=== PATIENT | male | born 1945 | race Caucasian/White ===

== ENCOUNTER 2021-04-06 11:54 | Inpatient (IN) ==
--- NOTE | 2021-04-06 12:12 | Emergency Department Note ---
HPI General Chief complaint: Weakness Stated complaint: weakness, edema, Time Seen by Provider: 04/06/21 11:57 Source: EMS Mode of arrival: wheelchair Limitations: altered mental status History of Present Illness HPI Narrative: Narrative: Patient presents emergency department via EMS. EMS report that the patient's been in [facility] has been there for 2 days. He has a history of Parkinson's. He fell 2 days ago. The care facility sent the patient to the emergency department due to concern for possible infection. EMS reported that the patient had no complaints on their evaluation. Patient does complain of some left lower leg pain to me after the fall. No fever. No other complaints. Related Data Home Medications Medication Instructions Recorded Confirmed aspirin 81 mg tablet,delayed 81 mg PO QDAY 04/19/15 04/06/21 release B12 vitamin 1,000 mcg PO QDAY 01/14/17 02/27/21 ferrous sulfate 325 mg (65 mg 325 mg PO QDAY tab 01/14/17 04/06/21 iron) tablet carbidopa 25 mg-levodopa 100 mg 2 tab PO TID tab 09/01/19 02/27/21 tablet escitalopram oxalate 10 mg tablet 20 mg PO QHS tab 11/01/20 04/06/21 ampicillin 500 mg PO BID 04/06/21 04/06/21 atorvastatin [Lipitor] 20 mg PO HS 04/06/21 calcium carbonate 200 mg PO QID PRN 04/06/21 04/06/21 docusate sodium 100 mg PO QDAY PRN 04/06/21 04/06/21 ibuprofen 200 mg PO Q6H PRN 04/06/21 04/06/21 loperamide 2 mg PO QID PRN 04/06/21 04/06/21 magnesium hydroxide [Milk of 30 ml PO QDAY 04/06/21 04/06/21 Magnesia] Previous Rx's Medication Instructions Recorded potassium chloride 20 mEq 20 meq PO .QOD #45 tab 11/09/18 tablet,extended release(part/cryst) omeprazole 20 mg capsule,delayed See Rx Instructions .ROUTE 08/15/20 release .COMPLEX #90 cap diltiazem HCl 240 mg See Rx Instructions .ROUTE 11/01/20 capsule,extended release 24 hr .COMPLEX #90 cap rivaroxaban 20 mg tablet 20 mg PO QDAY #90 tab 11/01/20 bisacodyl 10 mg VT QDAY PRN #12 ea 12/21/20 quetiapine 100 mg tablet 100 mg PO QHS #30 tab 01/17/21 Allergies Allergy/AdvReac Type Severity Reaction Status Date / Time Doxepin Allergy Intermediate Intolerance Verified 02/27/21 09:34 venlafaxine [From Effexor] Allergy Intermediate Intolerance Verified 02/27/21 09:34 Review of Systems ROS ROS Narrative: Narrative: As above, all other systems reviewed and negative. PFSH Narrative Patient History Narrative: Narrative: Reviewed Medical/Surgical/Family History All Active Problems (Updated 04/06/21 @ 18:47 by Thom Bhatti MD) Fall (Acute) Head injury (Acute) Contusion of hip, left (Acute) Contusion of left shoulder (Acute) Acute GI bleeding (Acute) Anemia (Acute) Generalized weakness (Acute) Balance disorder (Acute) Acute hip pain, bilateral (Acute) Parkinson's disease (Acute) Recurrent falls (Acute) Constipation (Acute) Contusion (Acute) Head injury (Acute) Fall (Acute) Accidental overdose (Acute) Foot pain (Acute) Exposure to COVID-19 virus (Acute) Parkinsons disease (Acute) Right-sided chest wall pain (Acute) Benign gastric polyp (Chronic) GAVE (gastric antral vascular ectasia) (Chronic) Hx of esophagogastroduodenoscopy (Chronic) Gout (Chronic) Anemia (Chronic) Folliculitis (Chronic) Encounter for Health Maintenance Examination in Adult (Chronic) Hx of esophagogastroduodenoscopy (Chronic) Hx of colonoscopy (Chronic) History of cardioversion (Chronic) 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) History of tobacco use (Chronic) Thoracic or lumbosacral neuritis or radiculitis (Chronic) Paroxysmal atrial fibrillation (Chronic) Chronic airflow obstruction (Chronic) Mitral valve regurgitation (Chronic) Kidney stones (Chronic) Ischemic heart disease, chronic (Chronic) Insomnia (Chronic) Hypertension (Chronic) Hyperlipidemia (Chronic) Herpes zoster (Chronic) Erectile dysfunction (Chronic) Situational depression (Chronic) Degenerative arthritis (Chronic) Decreased libido (Chronic) Hx of colonic polyp (Chronic) Atrial fibrillation (Chronic) Asbestos exposure (Chronic) Acne rosacea (Chronic) Medical History Acne rosacea Asbestos exposure Chest x-ray stable in July 2011 and on every other year sequencing Atrial fibrillation Balance disorder Chronic airflow obstruction hx of positional airflow obstruction with ENT review in 2008, not a current active problem Decreased libido with normal testosterone level in July of 2011 Degenerative arthritis Encounter for Health Maintenance Examination in Adult Erectile dysfunction history of, and decreased libido with normal testosterone level in July 2011 Foot pain Herpes zoster History of tobacco use Ex smoker, discontinuing in 1990 with heavy asbestos exposure; chest x-ray in July 2011 stable and on every other year sequencing Hx of colonic polyp 11/05/1160-[facility]mus[facility]l-[id number], hyperplastic polyp. Iron deficiency anemia, now on five year sequencing with past hx of adenomatous polyp Hyperlipidemia Hypertension Insomnia Ischemic heart disease, chronic coronary bypass grafting; paroxysmal atrial fibrillation first noted in February of 2012-aspirin anticoagulation. stable office treadmill in June 2009; plan restratification at five year point Kidney stones history of, ct in 2005, updated CT to evaluate iron deficiency anemia in October 2011 Mitral valve regurgitation Echo showing 2+ mitral regurgitation, currently stable on Cardizem with CHADS score of 1.0 and aspirin coagulation Paroxysmal atrial fibrillation coronary bypass grafting, paroxysmal atrial fibrillation first noted in February 2012 with echo showing 2+ mitral regurgitation, currently stable on Cardizem with CHADS score of 1.0-aspirin anticoagulation Situational depression long standing Thoracic or lumbosacral neuritis or radiculitis 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 10/2016--tics,hem Hx of esophagogastroduodenoscopy 11/12/11-Normal' small bowel follow through and abdominal CT normal, corrected with iron replacement and remains stable Family History uncle Diabetes mellitus several older family members Heart problem grandmother , 65 Acute myocardial infarction sister Malignant neoplasm of ovary Social History Smoking Status: Former smoker Alcohol Intake Frequency: does not drink Substance Use: does not use Exam Narrative Narrative: Narrative: Blood pressure 123/74, pulse 91, respirations 16, temperature 97.3, O2 sat 100%. General Limitations: altered mental status Head Head: Present atraumatic and normocephalic Eye Eye: Present normal appearance, PERRL and EOMI ENT ENT: Present normal exam Neck Neck: Present normal inspection Respiratory Respiratory: Absent respiratory distress : Present other (Rectal exams performed with nurse in the room. Stool is brown, guaiac positive.) Extremities Extremities: Present other (Bilateral lower extremity pitting edema, abrasion to left knee, some erythema to the anterior left velasco, generalized tenderness palpation of the left lower extremity from the knee down to the foot, no localizing bony tenderness.) Neurological Neurological: Present alert and CN II-XII intact; Absent motor sensory deficit Psychiatric Psychiatric: Present normal affect and normal mood Skin Skin: Present warm (WNL) and dry Course Vital Signs Vital signs: Vital Signs Temperature 97.3 F 04/06/21 11:55 Pulse Rate 91 H 04/06/21 11:55 Respiratory Rate 16 04/06/21 11:55 Blood Pressure 123/74 04/06/21 11:55 Pulse Oximetry (%) 100 04/06/21 11:55 Temperature 97.3 F 04/06/21 11:55 Pulse Rate 88 04/06/21 18:16 Respiratory Rate 16 04/06/21 11:55 Blood Pressure 144/73 04/06/21 18:31 Pulse Oximetry (%) 99 04/06/21 18:31 [facility] MDM Narrative Medical decision making narrative: Narrative: Patient hydrated orally. He is on Xarelto. He had a significant decrease in his hemoglobin. Guaiac positive stool. We attempted to obtain orthostatics however could not get a standing blood pressure due to max assist of 2 nurses and patient significantly weak. Spoke with on-call hospitalist. Case reviewed in detail over the phone. Hospitalist agreed with admission. Lab Data Result diagrams: 04/06/21 12:09 Labs: Lab Results 04/06/21 04/06/21 04/06/21 Range/Units 12:09 12:09 16:43 WBC 6.8 (4.5-11.0) K/mcL RBC 2.72 L (4.63-6.08) M/mcL Hgb 9.1 L (13.7-17.5) g/dL Hct 27.2 L (40.1-51.0) % POC Hct 26 L (41-55) % MCV 100.0 (80.0-100.0) fL MCH 33.5 (26.0-34.0) pg MCHC 33.5 (31.0-36.0) g/dL RDW 12.5 (11.5-14.5) % Plt Count 299 (140-440) K/mcL MPV 10.0 (7.4-10.4) fL Neut % (Auto) 69.0 (38.0-78.0) % Lymph % (Auto) 12.7 L (15.5-49.0) % Caswell % (Auto) 16.3 H (1.0-12.0) % Eos % (Auto) 1.6 (0.0-7.0) % Baso % (Auto) 0.4 (0.0-2.0) % Lymph # (Auto) 0.87 L (1.50-4.80) K/mcL Caswell # (Auto) 1.11 H (0.10-0.90) K/mcL Eos # (Auto) 0.11 (0.00-0.70) K/mcL Baso # (Auto) 0.03 (0.00-0.30) K/mcL Absolute Neutrophils 4.71 (1.80-8.00) K/mcL POC Sodium 140 (133-145) mEq/L POC Potassium 3.6 (3.3-5.1) mEql/L POC Chloride 103 (96-108) mEq/L POC Total CO2 27 (22-30) mmol/L POC BUN 13 (6-20) mg/dL POC Creatinine 0.7 (0.6-1.2) mg/dL POC Glucose 91 (70-105) mg/dL POC WB Ioniz Calcium 1.18 (1.16-1.32) mmEq/L Urine Color Yellow Urine Appearance Hazy A (Clear) Urine pH 5.0 (5.0-9.0) Ur Specific Platter 1.024 (1.000-1.035) Urine Protein Negative (Negative) mg/dL Urine Glucose (UA) Negative (Negative) mg/dL Urine Ketones 5 A (Negative) mg/dL Urine Occult Blood >=1.0 A (Negative) mg/dL Urine Nitrate Negative (Negative) Urine Bilirubin Negative (Negative) mg/dL Urine Urobilinogen 2.0 A mg/dL Ur Leukocyte Esterase 250 A (Negative) /ug Urine RBC 144 H (0-3) /hpf Urine WBC 39 H (0-4) /hpf Ur Squamous Epith Cells 1 (0-4) /hpf Urine Bacteria None (0) /hpf Urine Mucus Many A (None) /hpf Ur Culture Indicated? yes ED POC Tests ED POC Tests: SRIRAM - SARS Antigen Negative Discharge Plan Patient/Caregiver Discharge Instructions Pt seen by QA TECH/PA only: No Clinical Impression: Acute GI bleeding, Anemia, Generalized weakness Patient Disposition: Xfer As Inpt ([facility]) Follow up with: Milind Malone MD, FAAFP [Primary Care Provider] - Prescriptions: No Action potassium chloride 20 mEq tablet,ER particles/crystals 20 meq PO .QOD Qty: 45 RF: 1 omeprazole 20 mg capsule,delayed release(DR/EC) See Rx Instructions .ROUTE .COMPLEX Qty: 90 RF: 3 aspirin 81 mg tablet,delayed release (DR/EC) 81 mg PO QDAY RF: 0 carbidopa-levodopa 25-100 mg tablet 2 tab PO TID RF: 0 escitalopram oxalate 10 mg tablet 20 mg PO QHS RF: 0 diltiazem HCl 240 mg capsule,extended release 24hr See Rx Instructions .ROUTE .COMPLEX Qty: 90 RF: 4 rivaroxaban 20 mg tablet 20 mg PO QDAY Qty: 90 RF: 5 quetiapine 100 mg tablet 100 mg PO QHS Qty: 30 RF: 10 B12 vitamin 1,000 mcg 1,000 mcg PO QDAY RF: 0 ferrous sulfate [iron] 325 mg (65 mg iron) tablet 325 mg PO QDAY RF: 0 bisacodyl 10 mg suppository 10 mg VT QDAY PRN (Reason: constipation) Qty: 12 RF: 0 ampicillin 500 mg Capsule 500 mg PO BID RF: 0 loperamide 2 mg Tablet 2 mg PO QID PRN (Reason: Diarrhea) RF: 0 magnesium hydroxide [Milk of Magnesia] 400 mg/5 mL Suspension 30 ml PO QDAY RF: 0 ibuprofen 100 mg Tablet 200 mg PO Q6H PRN (Reason: Pain) RF: 0 calcium carbonate 200 mg calcium (500 mg) Tablet,Chewable 200 mg PO QID PRN (Reason: gerd) RF: 0 docusate sodium 100 mg Tablet 100 mg PO QDAY PRN (Reason: Constipation) RF: 0 atorvastatin [Lipitor] 20 mg tablet 20 mg PO HS RF: 0
[2021-04-06 12:16] LABS: POC Blood Urea Nitrogen 13 mg/dL (6-20); POC CO2 27 mmol/L (22-30); POC Calcium, Ionized 1.18 mmEq/L (1.16-1.32); POC Chloride 103 mEq/L (96-108); POC Creatinine 0.7 mg/dL (0.6-1.2); POC Glucose, Random 91 mg/dL (70-105); POC Hematocrit 26 % (41-55); POC Potassium 3.6 mEql/L (3.3-5.1); POC Sodium 140 mEq/L (133-145)
--- NOTE | 2021-04-06 12:56 | XRay Report ---
HISTORY: Increased weakness and edema FINDINGS: Lungs are clear and normally expanded. The heart size is normal. There has been prior sternotomy. No congestive heart failure or pleural effusion are present. There has been little change from the prior exam done on 01/13/21. IMPRESSION: Normal exam, without congestive heart failure Interpreted and Authenticated by: Felix Leos 04/06/21
--- NOTE | 2021-04-06 12:58 | XRay Report ---
HISTORY: Fell with left leg pain and weakness FINDINGS: No acute fracture or dislocation are present. Inferior to the lateral malleolus there is a well-corticated 3 x 5 mm soft tissue calcification. This may be an old ununited fracture fragment. There is edema throughout the lower leg extending down to the ankle. The joint spaces are normal in width. Small calcaneal spurs are present. IMPRESSION: Nonspecific soft tissue swelling and no acute fracture Interpreted and Authenticated by: Felix Leos 04/06/21
--- NOTE | 2021-04-06 13:00 | XRay Report ---
HISTORY: Fell with left ankle injury FINDINGS: Inferior to the lateral malleolus there is a well-corticated calcification which is been old ununited chip fracture. No acute fracture or dislocation are present. The ankle joint space is normal in width. No joint effusion is detected. There are small spurs on the plantar surface and posterior border of the calcaneus. Edema surrounds the ankle. The greatest swelling is along the medial side. IMPRESSION: No acute fracture Interpreted and Authenticated by: Felix Leos 04/06/21
--- NOTE | 2021-04-06 13:01 | XRay Report ---
HISTORY: Fell with left knee injury FINDINGS: The knee is held in flexion. There is no evidence of fracture or dislocation. No joint effusion is detected. Joint spaces are normal in width. There is atherosclerotic plaque in the arteries above and below the knee. Several vascular clips are present along the medial side of the distal thigh. There is no significant arthritis. IMPRESSION: No fracture Interpreted and Authenticated by: Felix Leos 04/06/21
--- NOTE | 2021-04-06 13:02 | XRay Report ---
HISTORY: Fell with left foot injury FINDINGS: Patient has a very high arch in the foot. No fracture or dislocation are present. There is mild osteoarthritis involving the head of the first metatarsal. There is also small spur at the articulation of the medial cuneiform and first metatarsal. Small calcaneal spurs are noted. IMPRESSION: No fracture Interpreted and Authenticated by: Felix Leos 04/06/21
[2021-04-06 14:02] LABS: Basophils # (Auto) 0.03 K/mcL (0.00-0.30); Basophils % (Auto) 0.4 % (0.0-2.0); Eosinophils # (Auto) 0.11 K/mcL (0.00-0.70); Eosinophils % (Auto) 1.6 % (0.0-7.0); Hematocrit 27.2 % (40.1-51.0); Hemoglobin 9.1 g/dL (13.7-17.5); Lymphocytes # (Auto) 0.87 K/mcL (1.50-4.80); Lymphocytes % (Auto) 12.7 % (15.5-49.0); Mean Corpuscular HGB Conc 33.5 g/dL (31.0-36.0); Monocytes # (Auto) 1.11 K/mcL (0.10-0.90); Monocytes % (Auto) 16.3 % (1.0-12.0); Platelet Count 299 K/mcL (140-440); RBC 2.72 M/mcL (4.63-6.08); Red Cell Distribution Width 12.5 % (11.5-14.5); WBC 6.8 K/mcL (4.5-11.0)
[2021-04-06] MEDS ORDERED: 0.9 % SODIUM CHLORIDE 1,000 ML IV ONE (17:02)
[2021-04-06 17:48] LABS: Appearance,Urine HAZY (Clear); Bilirubin,Urine Negative (Negative); Color,Urine Yellow; Culture Indicated,Urine yes; Glucose,Urine (UA) Negative (Negative); Ketones,Urine 5 mg/dL (Negative); Leukocyte Esterase,Urine 250 /ug (Negative); Mucus,Urine MANY /hpf; Nitrate,Urine Negative (Negative); Protein,Urine Negative (Negative); Specific Gravity,Urine 1.024 (1.000-1.035); Urine Blood >=1.0 mg/dL (Negative); Urine RBC 144 /hpf (0-3); Urine Squamous Epithelial Cell 1 /hpf (0-4); Urine WBC 39 /hpf (0-4)
--- NOTE | 2021-04-06 17:51 | Internal Med History&Physical ---
HPI History of Present Illness Patient information: Note initiated : 04/06/21 at 5:37 pm Service Date, if different from initiated Date: [] Patient: Paul Turner a 76 y/o M admitted on for weakness, edema,. Chief Complaint: [] History of present illness: Mr. Turner is a 76 year old male with a history of Parkinson's disease complicated by dementia, coronary artery disease status post CABG, atrial fibrillation on Xarelto, frequent falls, currently living at a facility in [place], [place]. Per report, the patient was admitted to the facility a couple days ago and had a fall on that date. The patient was taken to the emergency department on 04/06/2021 for concern of possible infection. Patient was afebrile, no leukocytosis, no evidence of infection however he did have acute drop in hemoglobin from late December from 12.5 to 9.1. Stool Hemoccult in the ED was positive. Hospital medicine was consulted for concern of possible GI bleed. In the ED, the patient is unable to provide history due to severe dementia. The patient does have some bruising on his left lower extremity, right hip, upper extremities. He was hemodynamically stable, x-rays of the chest, left knee, left tibia fibula, left ankle, left foot did not show any acute findings. CBC and chemistry panel were fairly unremarkable except for the drop in hemoglobin. CODE STATUS was discussed with the patient's daughter, Kamla Kelly, who says the patient CODE STATUS is DNR. Review of systems: Unable to obtain due to dementia. Physical exam Head: Atraumatic, normal inspection. Eyes: normal appearance, no scleral icterus. Neck: full ROM Respiratory: no respiratory distress. Cardiovascular: normal rate and rhythm, holosystolic murmur present. GI/Abdominal: soft, nontender, no guarding. Extremities: left lower extremity edema, bruise on left posterior thigh, right hip Neurological: CN II-XII intact, intact motor, intact sensation. Psychiatric: severe cognitive impairment Skin: warm, normal color PFSH PFSH All Active Problems Fall (Acute) Head injury (Acute) Contusion of hip, left (Acute) Contusion of left shoulder (Acute) Balance disorder (Acute) Acute hip pain, bilateral (Acute) Parkinson's disease (Acute) Recurrent falls (Acute) Constipation (Acute) Contusion (Acute) Head injury (Acute) Fall (Acute) Accidental overdose (Acute) Foot pain (Acute) Exposure to COVID-19 virus (Acute) Parkinsons disease (Acute) Right-sided chest wall pain (Acute) Benign gastric polyp (Chronic) GAVE (gastric antral vascular ectasia) (Chronic) Hx of esophagogastroduodenoscopy (Chronic) Gout (Chronic) Anemia (Chronic) Folliculitis (Chronic) Encounter for Health Maintenance Examination in Adult (Chronic) Hx of esophagogastroduodenoscopy (Chronic) Hx of colonoscopy (Chronic) History of cardioversion (Chronic) 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) History of tobacco use (Chronic) Thoracic or lumbosacral neuritis or radiculitis (Chronic) Paroxysmal atrial fibrillation (Chronic) Chronic airflow obstruction (Chronic) Mitral valve regurgitation (Chronic) Kidney stones (Chronic) Ischemic heart disease, chronic (Chronic) Insomnia (Chronic) Hypertension (Chronic) Hyperlipidemia (Chronic) Herpes zoster (Chronic) Erectile dysfunction (Chronic) Situational depression (Chronic) Degenerative arthritis (Chronic) Decreased libido (Chronic) Hx of colonic polyp (Chronic) Atrial fibrillation (Chronic) Asbestos exposure (Chronic) Acne rosacea (Chronic) Medical History Acne rosacea Asbestos exposure Chest x-ray stable in July 2011 and on every other year sequencing Atrial fibrillation Balance disorder Chronic airflow obstruction hx of positional airflow obstruction with ENT review in 2008, not a current active problem Decreased libido with normal testosterone level in July of 2011 Degenerative arthritis Encounter for Health Maintenance Examination in Adult Erectile dysfunction history of, and decreased libido with normal testosterone level in July 2011 Foot pain Herpes zoster History of tobacco use Ex smoker, discontinuing in 1990 with heavy asbestos exposure; chest x-ray in July 2011 stable and on every other year sequencing Hx of colonic polyp 11/05/1112-Dpttzckgbet-ekbeieenfedzcn, hyperplastic polyp. Iron deficiency anemia, now on five year sequencing with past hx of adenomatous polyp Hyperlipidemia Hypertension Insomnia Ischemic heart disease, chronic coronary bypass grafting; paroxysmal atrial fibrillation first noted in February of 2012-aspirin anticoagulation. stable office treadmill in June 2009; plan restratification at five year point Kidney stones history of, ct in 2005, updated CT to evaluate iron deficiency anemia in October 2011 Mitral valve regurgitation Echo showing 2+ mitral regurgitation, currently stable on Cardizem with CHADS score of 1.0 and aspirin coagulation Paroxysmal atrial fibrillation coronary bypass grafting, paroxysmal atrial fibrillation first noted in February 2012 with echo showing 2+ mitral regurgitation, currently stable on Cardizem with CHADS score of 1.0-aspirin anticoagulation Situational depression long standing Thoracic or lumbosacral neuritis or radiculitis 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 10/2016--tics,hem Hx of esophagogastroduodenoscopy 11/12/11-Normal' small bowel follow through and abdominal CT normal, corrected with iron replacement and remains stable Family History uncle Diabetes mellitus several older family members Heart problem grandmother , 65 Acute myocardial infarction sister Malignant neoplasm of ovary Social History household members: alone housing: house lives independently: Yes marital status: occupational status: retired occupational exposures/hazards: Yes (asbestos exposure stable chest x-ray in 2009) alcohol intake frequency: does not drink substance use type: does not use MEDS/ALLERGIES Home Medications and Allergies Home Medications Medication Instructions Recorded Confirmed Type aspirin 81 mg tablet,delayed 81 mg PO QDAY 04/19/15 04/06/21 History release B12 vitamin 1,000 mcg PO QDAY 01/14/17 02/27/21 History ferrous sulfate 325 mg (65 mg 325 mg PO QDAY tab 01/14/17 04/06/21 History iron) tablet potassium chloride 20 mEq 20 meq PO .QOD #45 tab 11/09/18 02/27/21 Rx tablet,extended release(part/cryst) carbidopa 25 mg-levodopa 100 mg 2 tab PO TID tab 09/01/19 02/27/21 History tablet omeprazole 20 mg capsule,delayed See Rx Instructions .ROUTE 08/15/20 02/27/21 Rx release .COMPLEX #90 cap diltiazem HCl 240 mg See Rx Instructions .ROUTE 11/01/20 04/06/21 Rx capsule,extended release 24 hr .COMPLEX #90 cap escitalopram oxalate 10 mg tablet 20 mg PO QHS tab 11/01/20 04/06/21 History rivaroxaban 20 mg tablet 20 mg PO QDAY #90 tab 11/01/20 02/27/21 Rx bisacodyl 10 mg IN QDAY PRN #12 ea 12/21/20 02/14/21 Rx quetiapine 100 mg tablet 100 mg PO QHS #30 tab 01/17/21 02/27/21 Rx ampicillin 500 mg PO BID 04/06/21 04/06/21 History atorvastatin [Lipitor] 20 mg PO HS 04/06/21 History calcium carbonate 200 mg PO QID PRN 04/06/21 04/06/21 History docusate sodium 100 mg PO QDAY PRN 04/06/21 04/06/21 History ibuprofen 200 mg PO Q6H PRN 04/06/21 04/06/21 History loperamide 2 mg PO QID PRN 04/06/21 04/06/21 History magnesium hydroxide [Milk of 30 ml PO QDAY 04/06/21 04/06/21 History Magnesia] Allergies Allergy/AdvReac Type Severity Reaction Status Date / Time Doxepin Allergy Intermediate Intolerance Verified 02/27/21 09:34 venlafaxine [From Effexor] Allergy Intermediate Intolerance Verified 02/27/21 09:34 EXAM Constitutional Vitals: Temp Pulse Resp BP Pulse Ox 97.3 F 95 H 16 149/94 98 04/06/21 11:55 04/06/21 16:46 04/06/21 11:55 04/06/21 17:01 04/06/21 17:01 DATA Data Completed and Pending Labs: Labs from last 24 hours 04/06/21 04/06/21 04/06/21 16:43 12:09 12:09 WBC 6.8 RBC 2.72 L Hgb 9.1 L Hct 27.2 L POC Hct 26 L MCV 100.0 MCH 33.5 MCHC 33.5 RDW 12.5 Plt Count 299 MPV 10.0 Neut % (Auto) 69.0 Lymph % (Auto) 12.7 L [place] % (Auto) 16.3 H Eos % (Auto) 1.6 Baso % (Auto) 0.4 Lymph # (Auto) 0.87 L [place] # (Auto) 1.11 H Eos # (Auto) 0.11 Baso # (Auto) 0.03 Absolute Neutrophils 4.71 POC Sodium 140 POC Potassium 3.6 POC Chloride 103 POC Total CO2 27 POC BUN 13 POC Creatinine 0.7 POC Glucose 91 POC WB Ioniz Calcium 1.18 Urine Color Pending Urine Appearance Pending Urine pH Pending Ur Specific [place] Pending Urine Protein Pending Urine Glucose (UA) Pending Urine Ketones Pending Urine Occult Blood Pending Urine Nitrate Pending Urine Bilirubin Pending Urine Urobilinogen Pending Ur Leukocyte Esterase Pending A/P Narrative A/P Narrative: Assessment: 76 year old male with a history of 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 Guaiac stool in the ED was positive. #Acute on chronic anemia #Possible GI bleed #Bruising from recent fall #Anticoagulation w/ Xarelto #Parkinson's disease #Frequent falls #CAD s/p CABG #Hx of atrial fibrillation #Dementia Plan -Start Protonix IV BID. -Trend hemoglobin, transfuse if less than 7 or symptomatic. -Hold Xarelto and Aspirin. -Endoscopy workup with general surgery tomorrow. -NPO after midnight. -CT head to rule out bleed. -Continue home Sinemet 25-100 2 tabs 6 AM, 12 PM, 6 PM as discussed with daughter. -Home medication reconciliation, resume other essential home meds. -Goals of care family discussion regarding anticoagulation in the setting of frequent falls. -Code status: DNR -Disposition: SNF Time Spent With Patient Time: Total time spent is greater than 50% in coordination of care (as jefferson martines) at patient's floor/unit and/or counseling patient:
[2021-04-06] MEDS ORDERED: PANTOPRAZOLE 40 MG VIAL IV ONE (19:23)
[2021-04-06] MEDS ORDERED: ONDANSETRON 4 MG/2 ML VIAL IV PRN (19:23)
[2021-04-06] MEDS: CARBIDOPA/LEVODOPA 25/100 TABLET PO SCH (20:26)
[2021-04-06] MEDS: SENNOSIDES 1 TABLET PO SCH (20:26)
[2021-04-06] MEDS: ACETAMINOPHEN 325 MG TABLET PO PRN (20:26)
[2021-04-06] MEDS: 0.9 % SODIUM CHLORIDE 10 ML SYRINGE IV SCH (20:27)
[2021-04-07] MEDS: ACETAMINOPHEN 325 MG TABLET PO PRN ×3 (04:54→20:13)
[2021-04-07] MEDS: 0.9 % SODIUM CHLORIDE 10 ML SYRINGE IV SCH ×3 (04:55→20:14)
[2021-04-07] MEDS: CARBIDOPA/LEVODOPA 25/100 TABLET PO SCH ×3 (04:55→17:48)
[2021-04-07] MEDS ORDERED: PANTOPRAZOLE 40 MG VIAL IV SCH (07:30)
[2021-04-07] MEDS ORDERED: 0.9 % SODIUM CHLORIDE 250 ML IV SCH (07:45)
[2021-04-07 08:12] LABS: ALT/SGPT 6 U/L (<40); AST/SGOT 18 U/L (<40); Albumin 3.3 gm/dL (3.2-5.2); Albumin/Globulin Ratio 1.4 (1.0-2.3); Alkaline Phosphatase 53 U/L (39-117); Bilirubin,Direct 0.3 mg/dL (<0.3); Bilirubin,Total 1.1 mg/dL (0.1-1.0); Blood Urea Nitrogen 11 mg/dL (8-23); Calcium 8.4 mg/dL (8.6-10.4); Carbon Dioxide 24 mmol/L (22-30); Chloride 104 mmol/L (96-108); Globulin 2.4 gm/dL (2.2-3.7); Glomerular Filtration Rate 87; Glucose 99 mg/dL (70-105); Lactate Dehydrogenase 216 U/L (135-225); Phosphorous 2.6 mg/dL (2.5-4.5); Triglycerides 51 mg/dL (<150); Uric Acid 4.4 mg/dL (2.5-8.0)
--- NOTE | 2021-04-07 08:25 | Cat Scan Report ---
History: Fell, hit head, anticoagulated TECHNIQUE: The brain was imaged without contrast in axial plane at 2.5 mm intervals. Radiation exposure was limited using dose reduction technology. FINDINGS: No skull fracture is present. There is no intracranial hemorrhage, cerebral edema or acute infarct. There are diffuse age-related degenerative changes with atrophy and white matter disease. Associated with the atrophy is ventricular dilatation. There has been no change from the prior CT done on 02/27/21. No abnormal extra-axial fluid collection is present. There is a stable mucous retention cyst or polyp in the left sphenoid sinus. IMPRESSION: Age-related degenerative changes and no acute head injury Dr. Long was called with the report. Interpreted and Authenticated by: Felix Leos 04/07/21
[2021-04-07] MEDS: cefTRIAXone 1 GM VIAL IV SCH (09:51)
--- NOTE | 2021-04-07 10:18 | General Surgery Consult Note ---
HPI Data of Consult Consult date: 04/07/21 Requesting physician: Phillip Long Primary Care Provider: Milind Malone M.D., F.A.A.F.P. Consult Narrative Patient Information: Note initiated : 04/07/21 at 10:02 am Service Date, if different from initiated Date: [] Patient: Paul Turner 76 y/o M admitted on 04/06/21 for weakness, edema,. Chief Complaint: [] Reason for consult: Anemia with history of gastrointestinal bleeding and guaiac positive stool cc:: CC: Phillip Long MD 76-year-old male who was admitted last evening for possible GI bleeding. The patient was seen in the emergency room with complaint of weakness and swelling in his lower extremities. 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 He has not had an GI bleeding in the past year. The patient is on Xarelto for chronic atrial fibrillation. He has had multiple falls with his most recent fall being 3 days ago. He has developed a major hematoma of his right hip and upper thigh. He has bruising another places but does appear to be chronic. It was noted in the ER that his hemoglobin had dropped from 12 to 9. He did have findings of guaiac positive stool but no evidence of melena or bright red rectal bleeding. 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 Review of Systems ROS unobtainable: due to mental status PFSH PFSH All Active Problems (Updated 04/07/21 @ 10:15 by Bronson Meehan MD) Acute on chronic blood loss anemia (Acute) Injury of right hip and thigh (Acute) Fall (Acute) Head injury (Acute) Contusion of hip, left (Acute) Contusion of left shoulder (Acute) Acute GI bleeding (Acute) Anemia (Acute) Generalized weakness (Acute) Balance disorder (Acute) Acute hip pain, bilateral (Acute) Parkinson's disease (Acute) Recurrent falls (Acute) Constipation (Acute) Contusion (Acute) Head injury (Acute) Fall (Acute) Accidental overdose (Acute) Foot pain (Acute) Exposure to COVID-19 virus (Acute) Parkinsons disease (Acute) Right-sided chest wall pain (Acute) Benign gastric polyp (Chronic) GAVE (gastric antral vascular ectasia) (Chronic) Hx of esophagogastroduodenoscopy (Chronic) Gout (Chronic) Anemia (Chronic) Folliculitis (Chronic) Encounter for Health Maintenance Examination in Adult (Chronic) Hx of esophagogastroduodenoscopy (Chronic) Hx of colonoscopy (Chronic) History of cardioversion (Chronic) 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) History of tobacco use (Chronic) Thoracic or lumbosacral neuritis or radiculitis (Chronic) Paroxysmal atrial fibrillation (Chronic) Chronic airflow obstruction (Chronic) Mitral valve regurgitation (Chronic) Kidney stones (Chronic) Ischemic heart disease, chronic (Chronic) Insomnia (Chronic) Hypertension (Chronic) Hyperlipidemia (Chronic) Herpes zoster (Chronic) Erectile dysfunction (Chronic) Situational depression (Chronic) Degenerative arthritis (Chronic) Decreased libido (Chronic) Hx of colonic polyp (Chronic) Atrial fibrillation (Chronic) Asbestos exposure (Chronic) Acne rosacea (Chronic) Medical History Acne rosacea Asbestos exposure Chest x-ray stable in July 2011 and on every other year sequencing Atrial fibrillation Balance disorder Chronic airflow obstruction hx of positional airflow obstruction with ENT review in 2008, not a current active problem Decreased libido with normal testosterone level in July of 2011 Degenerative arthritis Encounter for Health Maintenance Examination in Adult Erectile dysfunction history of, and decreased libido with normal testosterone level in July 2011 Foot pain Herpes zoster History of tobacco use Ex smoker, discontinuing in 1990 with heavy asbestos exposure; chest x-ray in July 2011 stable and on every other year sequencing Hx of colonic polyp 11/05/1101-Ptttewtvvti-hnxatfiufysiia, hyperplastic polyp. Iron deficiency anemia, now on five year sequencing with past hx of adenomatous polyp Hyperlipidemia Hypertension Insomnia Ischemic heart disease, chronic coronary bypass grafting; paroxysmal atrial fibrillation first noted in February of 2012-aspirin anticoagulation. stable office treadmill in June 2009; plan restratification at five year point Kidney stones history of, ct in 2005, updated CT to evaluate iron deficiency anemia in October 2011 Mitral valve regurgitation Echo showing 2+ mitral regurgitation, currently stable on Cardizem with CHADS score of 1.0 and aspirin coagulation Paroxysmal atrial fibrillation coronary bypass grafting, paroxysmal atrial fibrillation first noted in February 2012 with echo showing 2+ mitral regurgitation, currently stable on Cardizem with CHADS score of 1.0-aspirin anticoagulation Situational depression long standing Thoracic or lumbosacral neuritis or radiculitis 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 10/2016--tics,hem Hx of esophagogastroduodenoscopy 11/12/11-Normal' small bowel follow through and abdominal CT normal, corrected with iron replacement and remains stable Family History uncle Diabetes mellitus several older family members Heart problem grandmother , 65 Acute myocardial infarction sister Malignant neoplasm of ovary Social History household members: alone housing: house lives independently: Yes marital status: occupational status: retired occupational exposures/hazards: Yes (asbestos exposure stable chest x-ray in 2009) alcohol intake frequency: does not drink substance use type: does not use MEDS/ALLERGIES Home Medications and Allergies Home Medications Medication Instructions Recorded Confirmed Type aspirin 81 mg tablet,delayed 81 mg PO QDAY 04/19/15 04/06/21 History release ferrous sulfate 325 mg (65 mg 325 mg PO Q48 tab 01/14/17 04/07/21 History iron) tablet diltiazem HCl 240 mg See Rx Instructions .ROUTE 11/01/20 04/06/21 Rx capsule,extended release 24 hr .COMPLEX #90 cap escitalopram oxalate 10 mg tablet 20 mg PO QHS tab 11/01/20 04/06/21 History ampicillin 500 mg PO BID 04/06/21 04/06/21 History calcium carbonate 200 mg PO QID PRN 04/06/21 04/06/21 History docusate sodium 100 mg PO QDAY PRN 04/06/21 04/06/21 History ibuprofen 200 mg PO Q6H PRN 04/06/21 04/06/21 History loperamide 2 mg PO QID PRN 04/06/21 04/06/21 History magnesium hydroxide [Milk of 30 ml PO QDAY 04/06/21 04/06/21 History Magnesia] Base B,Polyethylene [id number] 17 g PO QAM 04/07/21 04/07/21 History atorvastatin 20 mg PO HS 04/07/21 04/07/21 History carbidopa-levodopa 2 tab PO TID 04/07/21 04/07/21 History mecobalamin (vitamin B12) 1,000 mcg PO QAM 04/07/21 04/07/21 History omeprazole 20 mg PO AC 04/07/21 04/07/21 History potassium chloride See Rx Instructions .ROUTE .COMPLEX 04/07/21 04/07/21 History quetiapine 100 mg PO HS 04/07/21 04/07/21 History rivaroxaban [Xarelto] 20 mg PO QAM 04/07/21 04/07/21 History Allergies Allergy/AdvReac Type Severity Reaction Status Date / Time Doxepin Allergy Intermediate Intolerance Verified 02/27/21 09:34 venlafaxine [From Effexor] Allergy Intermediate Intolerance Verified 02/27/21 09:34 Physical Examination Vital Signs Vital signs: Temp Pulse Resp BP Pulse Ox 100.3 F H 96 H 16 138/64 95 04/07/21 04:55 04/07/21 04:55 04/07/21 04:55 04/07/21 04:55 04/07/21 04:55 General physical appearance General physical exam: well developed, well nourished, no distress, moderate pain, chronically ill and other Eyes Eye exam: PERRL and normal ocular movement ENT ENT exam: normal mucosa and no congestion Head Head exam IM: Present atraumatic (No evidence of hematoma or injury to his skull) and normal inspection Neck Neck exam: no masses, no bruits, trachea midline, no lymphadenopathy and no venous distension Cardiovascular Cardiovascular exam IM: Present irregular rhythm (Irregularly irregular rhythm), +S1 and +S2; Absent JVD Respiratory Respiratory exam: normal expansion, normal respiratory effort and clear to auscultation Abdomen Abdomen: Present non tender and bowel sounds; Absent organomegaly, guarding and distended Integumentary Integumentary: Present no rash, no growths and other (Extensive bruising to both upper extremities; bilateral flanks and bilateral lower extremities) Neurologic Neurologic: Present disoriented, confused and other (Severe cogwheel rigidity of upper and lower extremities with major decreased range of motion right hip) Musculoskeletal Musculoskeletal: Present other (Major hematoma right hip and thigh) Psychiatric Psychiatric: Present other (Altered mentation due to advanced Parkinson's disease) Results Labs Result diagrams: 04/07/21 07:47 04/07/21 05:27 Labs: Abnormal lab results 04/06/21 04/06/21 04/06/21 Range/Units 12:09 12:09 16:43 RBC 2.72 L (4.63-6.08) M/mcL Hgb 9.1 L (13.7-17.5) g/dL Hct 27.2 L (40.1-51.0) % POC Hct 26 L (41-55) % Lymph % (Auto) 12.7 L (15.5-49.0) % [place] % (Auto) 16.3 H (1.0-12.0) % Lymph # (Auto) 0.87 L (1.50-4.80) K/mcL [place] # (Auto) 1.11 H (0.10-0.90) K/mcL Calcium (8.6-10.4) mg/dL Total Bilirubin (0.1-1.0) mg/dL Direct Bilirubin (<0.3) mg/dL Total Protein (5.9-8.4) gm/dL Urine Appearance Hazy A (Clear) Urine Ketones 5 A (Negative) mg/dL Urine Occult Blood >=1.0 A (Negative) mg/dL Urine Urobilinogen 2.0 A mg/dL Ur Leukocyte Esterase 250 A (Negative) /ug Urine RBC 144 H (0-3) /hpf Urine WBC 39 H (0-4) /hpf Urine Mucus Many A (None) /hpf 04/06/21 04/07/21 04/07/21 Range/Units 19:40 01:31 05:27 RBC (4.63-6.08) M/mcL Hgb 8.4 L 8.8 L (13.7-17.5) g/dL Hct (40.1-51.0) % POC Hct (41-55) % Lymph % (Auto) (15.5-49.0) % [place] % (Auto) (1.0-12.0) % Lymph # (Auto) (1.50-4.80) K/mcL [place] # (Auto) (0.10-0.90) K/mcL Calcium 8.4 L (8.6-10.4) mg/dL Total Bilirubin 1.1 H (0.1-1.0) mg/dL Direct Bilirubin 0.3 H (<0.3) mg/dL Total Protein 5.7 L (5.9-8.4) gm/dL Urine Appearance (Clear) Urine Ketones (Negative) mg/dL Urine Occult Blood (Negative) mg/dL Urine Urobilinogen mg/dL Ur Leukocyte Esterase (Negative) /ug Urine RBC (0-3) /hpf Urine WBC (0-4) /hpf Urine Mucus (None) /hpf 04/07/21 Range/Units 07:47 RBC (4.63-6.08) M/mcL Hgb 8.5 L (13.7-17.5) g/dL Hct (40.1-51.0) % POC Hct (41-55) % Lymph % (Auto) (15.5-49.0) % [place] % (Auto) (1.0-12.0) % Lymph # (Auto) (1.50-4.80) K/mcL [place] # (Auto) (0.10-0.90) K/mcL Calcium (8.6-10.4) mg/dL Total Bilirubin (0.1-1.0) mg/dL Direct Bilirubin (<0.3) mg/dL Total Protein (5.9-8.4) gm/dL Urine Appearance (Clear) Urine Ketones (Negative) mg/dL Urine Occult Blood (Negative) mg/dL Urine Urobilinogen mg/dL Ur Leukocyte Esterase (Negative) /ug Urine RBC (0-3) /hpf Urine WBC (0-4) /hpf Urine Mucus (None) /hpf Diabetes panel 04/07/21 Range/Units 05:27 Sodium 137 (133-145) mmol/L Potassium 3.4 (3.3-5.1) mmol/L Chloride 104 (96-108) mmol/L Carbon Dioxide 24 (22-30) mmol/L BUN 11 (8-23) mg/dL Creatinine 0.8 (0.7-1.2) mg/dL Glucose 99 (70-105) mg/dL Calcium 8.4 L (8.6-10.4) mg/dL AST 18 (<40) U/L ALT 6 (<40) U/L Alkaline Phosphatase 53 (39-117) U/L Total Protein 5.7 L (5.9-8.4) gm/dL Albumin 3.3 (3.2-5.2) gm/dL Triglycerides 51 (<150) mg/dL Calcium panel 04/07/21 Range/Units 05:27 Calcium 8.4 L (8.6-10.4) mg/dL Phosphorus 2.6 (2.5-4.5) mg/dL Albumin 3.3 (3.2-5.2) gm/dL Pituitary panel 04/07/21 Range/Units 05:27 Sodium 137 (133-145) mmol/L Potassium 3.4 (3.3-5.1) mmol/L Chloride 104 (96-108) mmol/L Carbon Dioxide 24 (22-30) mmol/L BUN 11 (8-23) mg/dL Creatinine 0.8 (0.7-1.2) mg/dL Glucose 99 (70-105) mg/dL Calcium 8.4 L (8.6-10.4) mg/dL Adrenal panel 04/07/21 Range/Units 05:27 Sodium 137 (133-145) mmol/L Potassium 3.4 (3.3-5.1) mmol/L Chloride 104 (96-108) mmol/L Carbon Dioxide 24 (22-30) mmol/L BUN 11 (8-23) mg/dL Creatinine 0.8 (0.7-1.2) mg/dL Glucose 99 (70-105) mg/dL Calcium 8.4 L (8.6-10.4) mg/dL Total Bilirubin 1.1 H (0.1-1.0) mg/dL AST 18 (<40) U/L ALT 6 (<40) U/L Alkaline Phosphatase 53 (39-117) U/L Total Protein 5.7 L (5.9-8.4) gm/dL Albumin 3.3 (3.2-5.2) gm/dL All other labs normal. A/P Assessment and plan (1) Acute on chronic blood loss anemia: Status: Acute (2) Injury of right hip and thigh: Status: Acute (3) Head injury: Status: Acute (4) Contusion of hip, left: Status: Acute (5) Contusion of left shoulder: Status: Acute (6) Parkinson's disease: Status: Acute (7) Right-sided chest wall pain: Status: Acute (8) GAVE (gastric antral vascular ectasia): Status: Chronic Comment: on EGD 2016; required cautery x1 (9) Hx of CABG: Status: Chronic Comment: coronary artery bypass grafting; paroxysmal atrial fibrillation first noted in February 2012=aspirin anticoagulation (10) Paroxysmal atrial fibrillation: Status: Chronic Comment: coronary bypass grafting, paroxysmal atrial fibrillation first noted in February 2012 with echo showing 2+ mitral regurgitation, currently stable on Cardizem with CHADS score of 1.0-aspirin anticoagulation Narrative A/P Narrative: The patient does not have been asked stigmata of recent GI blood loss. There is no melena. Though he does have gastric antral vascular ectasia the change in hemoglobin is probably related to the major amount of bleeding t hat he has had in his right hip and thigh. There is no indication for endoscopic evaluation at this time. CT of the pelvis and hip on the right side will be carried out today to evaluate the volume of blood loss that is in his hip and thigh. The patient has far advanced parkinsonism and has had multiple falls with head injury. With his present condition and with the history of antral vascular ectasia with bleeding the patient should not be taking Xarelto at this time. I will discussed this with the daughter and leave the final decision up to the hospitalist. Time Spent With Patient Time: Total time spent is greater than 50% in coordination of care (as documented) at patient's floor/unit and/or counseling patient:
[2021-04-07] MEDS ORDERED: IOPAMIDOL 100 ML BOTTLE IV ONE (10:25)
--- NOTE | 2021-04-07 10:36 | Cat Scan Report ---
Recent fall with right hip injury, anticoagulated TECHNIQUE: The patient was imaged without contrast in axial plane at 2.5 mm intervals from the L3 level to just below the knees. Sagittal, coronal and reformatted axial images were created. The radiation exposure was limited using dose reduction technology. FINDINGS: There is moderate subcutaneous edema around the right buttock. Posterior and lateral to the greater trochanter there is an ill-defined deep subcutaneous hematoma which measures approximately 3.7 x 7.8 cm. No intramuscular hematoma is present. However, there is a band of edema behind the deep fascia lateral to the vastus lateralis muscle. No pelvic or hip fracture present. There are small spurs along the margins of the greater trochanters bilaterally. The hip joint spaces are normal in width. There is no evidence of a joint effusion. Patient has severe spinal canal stenosis at L3-4 and moderate spinal canal stenosis at L4-5 due to bulging discs and spurs. Severe disc space narrowing is present at L5-S1. SI joints and symphysis pubis are normal. The knees are normal. There is moderate atherosclerotic disease in the pelvis and legs. A 2.6 x 2.8 cm fusiform aneurysm is present in the distal abdominal aorta. There is no intrapelvic hematoma. Bowel pattern is normal. Urinary bladder and prostate are normal. IMPRESSION: No fracture Subcutaneous hematoma in the lateral aspect of the right buttock Interpreted and Authenticated by: Felix Leos 04/07/21
--- NOTE | 2021-04-07 16:33 | Internal Med Progress Note ---
SUBJECTIVE Subjective Patient information: Note initiated : 04/07/21 at 4:27 pm Service Date, if different from initiated Date: [] Patient: Paul Turner a 76 y/o M admitted on 04/06/21 for weakness, edema,. Chief Complaint: [] Interval history: Mr. Turner is a 76 year old male with a history of Parkinson's disease complicated by dementia, coronary artery disease status post CABG, atrial fibrillation on Xarelto, frequent falls, currently living at a facility in [place], [place]. Per report, the patient was admitted to the facility a couple days ago and had a fall on that date. The patient was taken to the emergency department on 04/06/2021 for concern of possible infection. Patient was afebrile, no leukocytosis, no evidence of infection however he did have acute drop in hemoglobin from late December from 12.5 to 9.1. Stool Hemoccult in the ED was positive. Hospital medicine was consulted for concern of possible GI bleed. In the ED, the patient is unable to provide history due to severe dementia. The patient does have some bruising on his left lower extremity, right hip, upper extremities. He was hemodynamically stable, x-rays of the chest, left knee, left tibia fibula, left ankle, left foot did not show any acute findings. CBC and chemistry panel were fairly unremarkable except for the drop in hemoglobin. CODE STATUS was discussed with the patient's daughter, Kamla Kelly, who says the patient CODE STATUS is DNR. Physical exam Head: Atraumatic, normal inspection. Eyes: normal appearance, no scleral icterus. Neck: full ROM Respiratory: no respiratory distress. Cardiovascular: normal rate and rhythm, holosystolic murmur present. GI/Abdominal: soft, nontender, no guarding. Extremities: left lower extremity edema, bruise on left knee, bruise on left posterior thigh, large bruise over right right hip Neurological: CN II-XII intact, intact motor, intact sensation. Psychiatric: severe cognitive impairment Skin: warm, normal color Constitutional Vitals: Vital Signs Temp Pulse Resp BP Pulse Ox 98.9 F 99 H 16 138/68 94 04/07/21 16:16 04/07/21 08:00 04/07/21 08:00 04/07/21 08:00 04/07/21 08:00 Period Temp Pulse Resp BP Sys/Darling Pulse Ox Last 24 Hr 97.3 F-100.3 F 84-114 16-18 115-156/61-94 94-99 Intake and Output 04/07/21 04/07/21 04/07/21 05:59 13:59 21:59 Intake Total 240 Output Total 300 125 Balance -60 -125 Weight 101.423 kg Patient Weight 04/08/21 05:59 Weight 101.423 kg Intake & Output: Intake & Output 04/07/21 04/07/21 04/07/21 05:59 13:59 21:59 Intake Total 240 Output Total 300 125 Balance -60 -125 Weight 101.423 kg Intake: Oral 240 Output: Void Amount 300 125 Other: Meal Nourishment/Supplement Percent of Meal Consumed 100% Feeding Ability Assist with Tray Set Up Nourishment/Supplement name egg salad sandwich, peach cup, chocolate ice cream Urine Appearance Clear Clear Urine Color Bright Yellow Dark Yellow Urine Odor Normal # of times incontinent of 0 Bowels OBJ DATA Labs CBC & Chem 7: 04/07/21 13:20 04/07/21 05:27 Labs: Abnormal Lab Results 04/07/21 04/07/21 04/07/21 13:20 07:47 05:27 RBC Hgb 9.4 L 8.5 L Hct POC Hct Lymph % (Auto) [place] % (Auto) Lymph # (Auto) [place] # (Auto) Calcium 8.4 L Total Bilirubin 1.1 H Direct Bilirubin 0.3 H Total Protein 5.7 L Urine Appearance Urine Ketones Urine Occult Blood Urine Urobilinogen Ur Leukocyte Esterase Urine RBC Urine WBC Urine Mucus 04/07/21 04/06/21 04/06/21 01:31 19:40 16:43 RBC Hgb 8.8 L 8.4 L Hct POC Hct Lymph % (Auto) [place] % (Auto) Lymph # (Auto) [place] # (Auto) Calcium Total Bilirubin Direct Bilirubin Total Protein Urine Appearance Hazy A Urine Ketones 5 A Urine Occult Blood >=1.0 A Urine Urobilinogen 2.0 A Ur Leukocyte Esterase 250 A Urine RBC 144 H Urine WBC 39 H Urine Mucus Many A 04/06/21 04/06/21 12:09 12:09 RBC 2.72 L Hgb 9.1 L Hct 27.2 L POC Hct 26 L Lymph % (Auto) 12.7 L [place] % (Auto) 16.3 H Lymph # (Auto) 0.87 L [place] # (Auto) 1.11 H Calcium Total Bilirubin Direct Bilirubin Total Protein Urine Appearance Urine Ketones Urine Occult Blood Urine Urobilinogen Ur Leukocyte Esterase Urine RBC Urine WBC Urine Mucus Meds: Medications Acetaminophen (Acetaminophen 325 Mg Tablet) 650 mg PO Q6HP PRN; Protocol PRN Reason: Per Pain Protocol/Fever > 101 Last Admin: 04/07/21 16:16 Dose: 650 mg Documented by: Carbidopa/Levodopa (Carbidopa/Levodopa 25/100 Tablet) 2 tab PO TID@0600,1200,1800 [facility] Last Admin: 04/07/21 13:05 Dose: 2 tab Documented by: Ceftriaxone Sodium (Ceftriaxone 1 Gm Vial) 1 gm IV DAILY [facility]; Protocol Last Admin: 04/07/21 09:51 Dose: 1 gm Documented by: Diltiazem HCl (Diltiazem 240 Mg Cap.Xl.24h) 240 mg PO DAILY [facility] Escitalopram Oxalate (Escitalopram 10 Mg Tablet) 20 mg PO QHS [facility] Sodium Chloride (Sodium Chloride 0.9%) 250 mls @ 20 mls/hr IV .[id number] [facility] Stop: 04/07/21 20:14 Last Admin: 04/07/21 09:45 Dose: Not Given Documented by: Omeprazole (Omeprazole 20 Mg Capsule) 20 mg PO ACB [facility] Ondansetron HCl (Ondansetron 4 Mg/2 Ml Vial) 4 mg IV Q6HP PRN PRN Reason: Nausea And Vomiting Pneumococcal Polyvalent Vaccine (Pneumococcal 23-Ericka P-Sac Vac 0.5 Ml Syringe) 0.5 ml IM .ONCE ONE Stop: 04/08/21 10:01 Quetiapine Fumarate (Quetiapine 100 Mg Tablet) 100 mg PO HS [facility] Senna (Sennosides 1 Tablet) 2 tab PO HS [facility] Last Admin: 04/06/21 20:26 Dose: 2 tab Documented by: Sodium Chloride (0.9 % Sodium Chloride 10 Ml Syringe) 10 ml IV Q8 [facility] Last Admin: 04/07/21 16:17 Dose: 10 ml Documented by: A/P Narrative A/P Narrative: Assessment: 76 year old male with a history of Parkinson's disease complicated by dementia, coronary artery disease status post CABG, atri al fibrillation on Xarelto, frequent falls, currently living at a facility in [place], [place], admitted for acute on chronic anemia probably due to a large left hip hematoma from a recent fall. #Acute on chronic anemia likely from blood loss into large left hip hematoma #Possible UTI #Multiple bruises from recent fall #Anticoagulation w/ Xarelto #Parkinson's disease #Frequent falls #CAD s/p CABG #Hx of atrial fibrillation #Dementia w/ behavioral disturbances Plan -Ceftriaxone for possible UTI, follow urine culture. -Discontinue PPI. -Follow hemoglobin, transfuse if less than 7 or symptomatic. -Hold Xarelto and Aspirin, do not resume on discharge. -Continue home Sinemet 25-100 TID at home schedule. -Resume other essential home meds. -Code status: DNR -Disposition: SNF pending placement, no aspirin or anticoagulation at discharge per daughter's request. Time Spent With Patient Time: Total time spent is greater than 50% in coordination of care (as documented) at patient's floor/unit and/or counseling patient: QUALITY VTE Deep Vein Thrombosis/Pulmonary Embolism Present on Admission: No
--- NOTE | 2021-04-07 19:58 | Internal Med Progress Note ---
SUBJECTIVE Subjective Patient information: Note initiated : 04/07/21 at 7:56 pm Service Date, if different from initiated Date: [] Patient: Paul Turner 76 y/o M admitted on 04/06/21 for weakness, edema,. Chief Complaint: [] Interval history: Mr. Turner is a 76 year old male with a history of Parkinson's disease complicated by dementia, coronary artery disease status post CABG, atrial fibrillation on Xarelto, frequent falls, currently living at a facility in [place], [place]. Per report, the patient was admitted to the facility a couple days ago and had a fall on that date. The patient was taken to the emergency department on 04/06/2021 for concern of possible infection. Patient was afebrile, no leukocytosis, no evidence of infection however he did have acute drop in hemoglobin from late December from 12.5 to 9.1. Stool Hemoccult in the ED was positive. Hospital medicine was consulted for concern of possible GI bleed. In the ED, the patient is unable to provide history due to severe dementia. The patient does have some bruising on his left lower extremity, right hip, upper extremities. He was hemodynamically stable, x-rays of the chest, left knee, left tibia fibula, left ankle, left foot did not show any acute findings. CBC and chemistry panel were fairly unremarkable except for the drop in hemoglobin. CODE STATUS was discussed with the patient's daughter, Kamla Kelly, who says the patient CODE STATUS is DNR. 04/08: hemoglobin stable, high grade temps but no fevers, on ceftriaxone for possible UTI, will start lovenox for DVT ppx tomorrow morning, social work working on placement. Physical exam Head: Atraumatic, normal inspection. Eyes: normal appearance, no scleral icterus. Neck: full ROM Respiratory: no respiratory distress. Cardiovascular: normal rate and rhythm, holosystolic murmur present. GI/Abdominal: soft, nontender, no guarding. Extremities: left lower extremity edema, bruise on left knee, bruise on left posterior thigh, large bruise over right right hip Neurological: CN II-XII intact, intact motor, intact sensation. Psychiatric: severe cognitive impairment Skin: warm, normal color Constitutional Vitals: Vital Signs Temp Pulse Resp BP Pulse Ox 98.9 F 98 H 16 138/70 94 04/07/21 16:16 09/18/21 16:00 04/07/21 16:00 04/07/21 16:00 04/07/21 16:00 Period Temp Pulse Resp BP Sys/Darling Pulse Ox Last 24 Hr 97.0 F-100.3 F 96-114 16-18 138-156/64-77 94-97 Intake and Output 04/07/21 04/07/21 04/07/21 05:59 13:59 21:59 Intake Total 240 200 Output Total 300 125 Balance -60 200 -125 Weight 101.423 kg Patient Weight 04/08/21 05:59 Weight 101.423 kg Intake & Output: Intake & Output 04/07/21 04/07/21 04/07/21 05:59 13:59 21:59 Intake Total 240 200 Output Total 300 125 Balance -60 200 -125 Weight 101.423 kg Intake: Oral 240 200 Output: Void Amount 300 125 Other: Meal Nourishment/Supplement Breakfast Percent of Meal Consumed 100% Feeding Ability Assist with Tray Set Up Nourishment/Supplement name egg salad sandwich, peach cup, chocolate ice cream Urine Appearance Clear Clear Urine Color Bright Yellow Dark Yellow Urine Odor Normal # of times incontinent of 0 Bowels OBJ DATA Labs CBC & Chem 7: 04/07/21 13:20 04/08/21 05:47 Labs: Abnormal Lab Results 04/07/21 04/07/21 04/07/21 13:20 07:47 05:27 RBC Hgb 9.4 L 8.5 L Hct POC Hct Lymph % (Auto) [place] % (Auto) Lymph # (Auto) [place] # (Auto) Calcium 8.4 L Total Bilirubin 1.1 H Direct Bilirubin 0.3 H Total Protein 5.7 L Urine Appearance Urine Ketones Urine Occult Blood Urine Urobilinogen Ur Leukocyte Esterase Urine RBC Urine WBC Urine Mucus 04/07/21 04/06/21 04/06/21 01:31 19:40 16:43 RBC Hgb 8.8 L 8.4 L Hct POC Hct Lymph % (Auto) [place] % (Auto) Lymph # (Auto) [place] # (Auto) Calcium Total Bilirubin Direct Bilirubin Total Protein Urine Appearance Hazy A Urine Ketones 5 A Urine Occult Blood >=1.0 A Urine Urobilinogen 2.0 A Ur Leukocyte Esterase 250 A Urine RBC 144 H Urine WBC 39 H Urine Mucus Many A 04/06/21 04/06/21 12:09 12:09 RBC 2.72 L Hgb 9.1 L Hct 27.2 L POC Hct 26 L Lymph % (Auto) 12.7 L [place] % (Auto) 16.3 H Lymph # (Auto) 0.87 L [place] # (Auto) 1.11 H Calcium Total Bilirubin Direct Bilirubin Total Protein Urine Appearance Urine Ketones Urine Occult Blood Urine Urobilinogen Ur Leukocyte Esterase Urine RBC Urine WBC Urine Mucus Meds: Medications Acetaminophen (Acetaminophen 325 Mg Tablet) 650 mg PO Q6HP PRN; Protocol PRN Reason: Per Pain Protocol/Fever > 101 Last Admin: 04/07/21 16:16 Dose: 650 mg Documented by: Carbidopa/Levodopa (Carbidopa/Levodopa 25/100 Tablet) 2 tab PO TID@0600,1200,1800 [facility] Last Admin: 04/07/21 17:48 Dose: 2 tab Documented by: Ceftriaxone Sodium (Ceftriaxone 1 Gm Vial) 1 gm IV DAILY [facility]; Protocol Last Admin: 04/07/21 09:51 Dose: 1 gm Documented by: Diltiazem HCl (Diltiazem 240 Mg Cap.Xl.24h) 240 mg PO DAILY [facility] Escitalopram Oxalate (Escitalopram 10 Mg Tablet) 20 mg PO QHS [facility] Sodium Chloride (Sodium Chloride 0.9%) 250 mls @ 20 mls/hr IV .[id number] [facility] Stop: 04/07/21 20:14 Last Admin: 04/07/21 09:45 Dose: Not Given Documented by: Omeprazole (Omeprazole 20 Mg Capsule) 20 mg PO ACB [facility] Ondansetron HCl (Ondansetron 4 Mg/2 Ml Vial) 4 mg IV Q6HP PRN PRN Reason: Nausea And Vomiting Pneumococcal Polyvalent Vaccine (Pneumococcal 23-Ericka P-Sac Vac 0.5 Ml Syringe) 0.5 ml IM .ONCE ONE Stop: 04/08/21 10:01 Quetiapine Fumarate (Quetiapine 100 Mg Tablet) 100 mg PO HS [facility] Senna (Sennosides 1 Tablet) 2 tab PO HS [facility] Last Admin: 04/06/21 20:26 Dose: 2 tab Documented by: Sodium Chloride (0.9 % Sodium Chloride 10 Ml Syringe) 10 ml IV Q8 [facility] Last Admin: 09/18/21 16:17 Dose: 10 ml Documented by: A/P Narrative A/P Narrative: Assessment: 76 year old male with a history of 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 General surgery was consulted for possible GI workup however felt the acute drop in hemoglobin was most likely from the large hematoma. The patient had high grade temperatures upon admission, urine culture grew E coli, the patient is unable to give a good history regarding UTI symptoms so he was started on empiric Ceftriaxone for possible UTI. #Acute on chronic anemia likely from blood loss into large left hip hematoma #Possible UTI #Multiple bruises from recent fall #Anticoagulation w/ Xarelto #Parkinson's disease #Frequent falls #CAD s/p CABG #Hx of atrial fibrillation #Dementia w/ behavioral disturbances Plan -Ceftriaxone for possible UTI. -Follow hemoglobin, stable. -Hold Xarelto and Aspirin, do not resume on discharge. -Continue home Sinemet, Seroquel, Escitalopram, Prilosec, Diltiazem, all other medications held and can be discontinued at discharge for quality of life preference per family request. -Code status: DNR -Disposition: SNF pending placement, no aspirin or anticoagulation at discharge per daughter's request, do not resume vitamins and prior medications that do not improve quality or behaviors. Time Spent With Patient Time: Total time spent is greater than 50% in coordination of care (as documented) at patient's floor/unit and/or counseling patient: QUALITY VTE Deep Vein Thrombosis/Pulmonary Embolism Present on Admission: No
[2021-04-07] MEDS: QUEtiapine 100 MG TABLET PO SCH (20:12)
[2021-04-07] MEDS: ESCITALOPRAM 10 MG TABLET PO SCH (20:12)
[2021-04-07] MEDS: SENNOSIDES 1 TABLET PO SCH (20:13)
[2021-04-08] MEDS: 0.9 % SODIUM CHLORIDE 10 ML SYRINGE IV SCH ×3 (05:41→20:45)
[2021-04-08] MEDS: CARBIDOPA/LEVODOPA 25/100 TABLET PO SCH ×3 (05:46→18:15)
[2021-04-08] MEDS ORDERED: OMEPRAZOLE 20 MG CAPSULE PO SCH (07:30)
[2021-04-08 08:13] LABS: ALT/SGPT 9 U/L (<40); AST/SGOT 17 U/L (<40); Albumin 3.4 gm/dL (3.2-5.2); Albumin/Globulin Ratio 1.3 (1.0-2.3); Alkaline Phosphatase 58 U/L (39-117); Bilirubin,Direct 0.3 mg/dL (<0.3); Bilirubin,Total 1.2 mg/dL (0.1-1.0); Blood Urea Nitrogen 8 mg/dL (8-23); Calcium 8.5 mg/dL (8.6-10.4); Carbon Dioxide 23 mmol/L (22-30); Chloride 106 mmol/L (96-108); Globulin 2.6 gm/dL (2.2-3.7); Glomerular Filtration Rate 92; Glucose 90 mg/dL (70-105); Lactate Dehydrogenase 285 U/L (135-225); Phosphorous 2.8 mg/dL (2.5-4.5); Triglycerides 49 mg/dL (<150)
[2021-04-08] MEDS: cefTRIAXone 1 GM VIAL IV SCH (08:36)
[2021-04-08] MEDS: DILTIAZEM 240 MG CAP.XL.24H PO SCH (08:36)
[2021-04-08] MEDS ORDERED: PNEUMOCOCCAL 23-VAL P-SAC VAC 0.5 ML SYRINGE IM ONE (10:00)
--- NOTE | 2021-04-08 12:57 | Internal Med Progress Note ---
SUBJECTIVE Subjective Patient information: Note initiated : 04/08/21 at 12:52 pm Service Date, if different from initiated Date: [] Patient: Paul Turner a 76 y/o M admitted on 04/06/21 for weakness, edema,. Chief Complaint: [] Interval history: Mr. 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 Per report, the patient was admitted to the facility a couple days ago and had a fall on that date. The patient was taken to the emergency department on 04/06/2021 for concern of possible infection. Patient was afebrile, no leukocytosis, no evidence of infection however he did have acute drop in hemoglobin from late December from 12.5 to 9.1. Stool Hemoccult in the ED was positive. Hospital medicine was consulted for concern of possible GI bleed. In the ED, the patient is unable to provide history due to severe dementia. The patient does have some bruising on his left lower extremity, right hip, upper extremities. He was hemodynamically stable, x-rays of the chest, left knee, left tibia fibula, left ankle, left foot did not show any acute findings. CBC and chemistry panel were fairly unremarkable except for the drop in hemoglobin. CODE STATUS was discussed with the patient's daughter, Kamla Kelly, who says the patient CODE STATUS is DNR. 04/08: hemoglobin stable, high grade temps but no fevers, on ceftriaxone for possible UTI, will start lovenox for DVT ppx tomorrow morning, social work working on placement. 04/09 Constitutional Vitals: Vital Signs Temp Pulse Resp BP Pulse Ox 98.5 F 101 H 16 137/83 98 04/08/21 12:00 04/08/21 05:37 04/08/21 12:00 04/08/21 12:00 04/08/21 12:00 Period Temp Pulse Resp BP Sys/Darling Pulse Ox Last 24 Hr 98.5 F-100 F 92-101 16-16 137-169/70-83 94-98 Intake and Output 04/07/21 04/08/21 04/08/21 21:59 05:59 13:59 Intake Total 240 Output Total 125 800 2 Balance -125 -800 238 Weight 101.605 kg Intake & Output: Intake & Output 04/07/21 04/08/21 04/08/21 21:59 05:59 13:59 Intake Total 240 Output Total 125 800 2 Balance -125 -800 238 Weight 101.605 kg Intake: Oral 240 Output: Urine Catheter Amount 500 Void Amount 125 300 # of times incontinent of urine 2 Other: Urine Appearance Clear Clear Clear Urine Color Dark Yellow Bright Yellow Dark Yellow Urine Odor Normal Strong Stool Size Large Stool Color Brown Green Stool Consistency Soft Formed # Bowel Movements 1 Exam: General: Alert, Awake, No acute Distress Eyes/N/T: EOMI, Head/Neck: neck supple, CV: RRR, No murmurs, Pulm: Clear b/l, no wheezing/rhonchi/rales Abd: soft, nontender, +BS x4 Ext: no clubbing/cyanosis, LLE edam, bruise to left knee/thigh and right hip Neuro: Alert, no focal deficits, moves all extremities, Skin: warm/dry OBJ DATA Labs CBC & Chem 7: 04/07/21 13:20 04/08/21 05:47 Labs: Abnormal Lab Results 04/08/21 04/07/21 04/07/21 05:47 13:20 07:47 RBC Hgb 9.4 L 8.5 L Hct POC Hct Lymph % (Auto) [place] % (Auto) Lymph # (Auto) [place] # (Auto) Calcium 8.5 L Total Bilirubin 1.2 H Direct Bilirubin 0.3 H Lactate Dehydrogenase 285 H Total Protein Urine Appearance Urine Ketones Urine Occult Blood Urine Urobilinogen Ur Leukocyte Esterase Urine RBC Urine WBC Urine Mucus 04/07/21 04/07/21 04/06/21 05:27 01:31 19:40 RBC Hgb 8.8 L 8.4 L Hct POC Hct Lymph % (Auto) [place] % (Auto) Lymph # (Auto) [place] # (Auto) Calcium 8.4 L Total Bilirubin 1.1 H Direct Bilirubin 0.3 H Lactate Dehydrogenase Total Protein 5.7 L Urine Appearance Urine Ketones Urine Occult Blood Urine Urobilinogen Ur Leukocyte Esterase Urine RBC Urine WBC Urine Mucus 04/06/21 04/06/21 04/06/21 16:43 12:09 12:09 RBC 2.72 L Hgb 9.1 L Hct 27.2 L POC Hct 26 L Lymph % (Auto) 12.7 L [place] % (Auto) 16.3 H Lymph # (Auto) 0.87 L [place] # (Auto) 1.11 H Calcium Total Bilirubin Direct Bilirubin Lactate Dehydrogenase Total Protein Urine Appearance Hazy A Urine Ketones 5 A Urine Occult Blood >=1.0 A Urine Urobilinogen 2.0 A Ur Leukocyte Esterase 250 A Urine RBC 144 H Urine WBC 39 H Urine Mucus Many A Meds: Medications Acetaminophen (Acetaminophen 325 Mg Tablet) 650 mg PO Q6HP PRN; Protocol PRN Reason: Per Pain Protocol/Fever > 101 Last Admin: 04/07/21 20:13 Dose: 650 mg Documented by: Carbidopa/Levodopa (Carbidopa/Levodopa 25/100 Tablet) 2 tab PO TID@0600,1200,1800 [facility] Last Admin: 04/08/21 12:08 Dose: 2 tab Documented by: Ceftriaxone Sodium (Ceftriaxone 1 Gm Vial) 1 gm IV DAILY [facility]; Protocol Last Admin: 04/08/21 08:36 Dose: 1 gm Documented by: Diltiazem HCl (Diltiazem 240 Mg Cap.Xl.24h) 240 mg PO DAILY [facility] Last Admin: 04/08/21 08:36 Dose: 240 mg Documented by: Enoxaparin Sodium (Enoxaparin 40 Mg/0.4 Ml Syringe) 40 mg SQ DAILY [facility] Escitalopram Oxalate (Escitalopram 10 Mg Tablet) 20 mg PO QHS [facility] Last Admin: 04/07/21 20:12 Dose: 20 mg Documented by: Ondansetron HCl (Ondansetron 4 Mg/2 Ml Vial) 4 mg IV Q6HP PRN PRN Reason: Nausea And Vomiting Quetiapine Fumarate (Quetiapine 100 Mg Tablet) 100 mg PO [facility] Last Admin: 04/07/21 20:12 Dose: 100 mg Documented by: Senna (Sennosides 1 Tablet) 2 tab PO [facility] Last Admin: 04/07/21 20:13 Dose: 2 tab Documented by: Sodium Chloride (0.9 % Sodium Chloride 10 Ml Syringe) 10 ml IV Q8 [facility] Last Admin: 04/08/21 12:08 Dose: 10 ml Documented by: A/P Narrative A/P Narrative: A: #Acute on chronic anemia likely from blood loss into large left hip hematoma: -H&H stable #Fall (h/o frequent falls) w/Multiple bruises: #Hx of atrial fibrillation: on Xarelto #CAD s/p CABG #Possible UTI #Parkinson's disease #Dementia w/ behavioral disturbances Plan -Ceftriaxone for possible UTI. -Follow hemoglobin, stable. -Hold Xarelto and Aspirin, do not resume on discharge. -Continue home Sinemet, Seroquel, Escitalopram, Prilosec, Diltiazem, all other medications held and can be discontinued at discharge for quality of life preference per family request. -Disposition: SNF pending placement, no aspirin or anticoagulation at discharge per daughter's request, do not resume vitamins and prior medications that do not improve quality or behaviors. -ppx: scd Code status: DNR Time Spent With Patient Time: Total time spent is greater than 50% in coordination of care (as docume nted) at patient's floor/unit and/or counseling patient: QUALITY VTE Deep Vein Thrombosis/Pulmonary Embolism Present on Admission: No
--- NOTE | 2021-04-08 13:01 | Discharge Summary ---
Discharge Provider Provider Patient information: Note initiated : 04/08/21 at 1:00 pm Service Date, if different from initiated Date: [] Patient: Paul Turner 76 y/o M admitted on 04/06/21 for weakness, edema,. Chief Complaint: [] Date of admission: 04/06/21 19:01 Discharge date: 04/09/21 Primary care physician: Milind Malone M.D., F.A.A.F.P. Consults: 04/06/21 Consult to Physician [CONS] Stat Comment: Consulting Provider: Phillip Long Reason For Exam: Physician to Consult 04/06/21 19:23 Consult to Physician [CONS] Stat Comment: Consulting Provider: Bronson Meehan Reason For Exam: Physician to Consult Discharge Meds Discharge Medications Home Medications diltiazem HCl 240 mg capsule,extended release 24 hr See Rx Instructions .ROUTE .COMPLEX #90 cap 11/01/20 [Rx Confirmed 04/06/21 Last Taken Unknown] escitalopram oxalate 10 mg tablet 20 mg PO QHS tab 11/01/20 [History Confirmed 04/06/21 Last Taken Unknown] docusate sodium 100 mg PO QDAY PRN 04/06/21 [History Confirmed 04/06/21 Last Taken Unknown] ibuprofen 200 mg PO Q6H PRN 04/06/21 [History Confirmed 04/06/21 Last Taken Unknown] loperamide 2 mg PO QID PRN 04/06/21 [History Confirmed 04/06/21 Last Taken Unknown] magnesium hydroxide [Milk of Magnesia] 30 ml PO QDAY 04/06/21 [History Confirmed 04/06/21 Last Taken Unknown] Base B,Polyethylene [id number] 17 g PO QAM 04/07/21 [History Confirmed 04/07/21 Last Taken 04/06/21 08:00] carbidopa-levodopa 2 tab PO TID 04/07/21 [History Confirmed 04/07/21 Last Taken 04/06/21 08:00] omeprazole 20 mg PO AC 04/07/21 [History Confirmed 04/07/21 Last Taken 04/05/21 08:00] quetiapine 100 mg PO HS 04/07/21 [History Confirmed 04/07/21 Last Taken 04/05/21 21:00] ciprofloxacin HCl 500 mg PO BID #8 tab 09/19/21 [Rx Last Taken Unknown] COURSE Hospital Course Hospital course: Interval history: Mr. 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 Per report, the patient was admitted to the facility a couple days ago and had a fall on that date. The patient was taken to the emergency department on 04/06/2021 for concern of possible infection. Patient was afebrile, no leukocytosis, no evidence of infection however he did have acute drop in hemoglobin from late December from 12.5 to 9.1. Stool Hemoccult in the ED was positive. Hospital medicine was consulted for concern of possible GI bleed. In the ED, the patient is unable to provide history due to severe dementia. The patient does have some bruising on his left lower extremity, right hip, upper extremities. He was hemodynamically stable, x-rays of the chest, left knee, left tibia fibula, left ankle, left foot did not show any acute findings. CBC and chemistry panel were fairly unremarkable except for the drop in hemoglobin. CODE STATUS was discussed with the patient's daughter, Kamla Kelly, who says the patient CODE STATUS is DNR. 04/08: hemoglobin stable, high grade temps but no fevers, on ceftriaxone for possible UTI, will start lovenox for DVT ppx tomorrow morning, social work working on placement. 04/09 No events overnight or new complaints. A/P Narrative: A: #Acute on chronic anemia likely from blood loss into large left hip hematoma: -H&H stable #Fall (h/o frequent falls) w/Multiple bruises: #Hx of atrial fibrillation: on Xarelto #CAD s/p CABG #Possible UTI #Parkinson's disease #Dementia w/ behavioral disturbances Discharge diagnosis: Hematoma frequent falls anemia Secondary discharge diagnosis: CAD UTI Parkinson's dementia Time Spent with Patient Time attestation: Total time spent providing and/or coordinating discharge services: Time spent: Greater than 30 minutes EXAM Constitutional Vitals: Temp Pulse Resp BP Pulse Ox 98.5 F 101 H 16 137/83 98 04/08/21 12:00 04/08/21 05:37 04/08/21 12:00 04/08/21 12:00 04/08/21 12:00 Discharge Data Data Completed and Pending Labs on day of discharge: Labs from last 24 hours 04/08/21 04/07/21 05:47 13:20 Hgb 9.4 L Sodium 142 Potassium 3.6 Chloride 106 Carbon Dioxide 23 Anion Gap 13.0 BUN 8 Creatinine 0.7 GFR Calculation 92 Glucose 90 Uric Acid 4.0 Calcium 8.5 L Phosphorus 2.8 Magnesium 2.0 Total Bilirubin 1.2 H Direct Bilirubin 0.3 H GGT 39 AST 17 ALT 9 Alkaline Phosphatase 58 Lactate Dehydrogenase 285 H Total Protein 6.0 Albumin 3.4 Globulin 2.6 Albumin/Globulin Ratio 1.3 Triglycerides 49 Preliminary micro results at discharge 04/07/21 09:21 Blood Culture - Preliminary Blood 04/07/21 09:19 Blood Culture - Preliminary Blood Discharge Plan Patient/Caregiver Discharge Instructions Activity: increase activity as tolerated Diet: Cardiac Prescriptions: New ciprofloxacin HCl 500 mg tablet 500 mg PO BID Qty: 8 RF: 0 Continued escitalopram oxalate 10 mg tablet 20 mg PO QHS RF: 0 diltiazem HCl 240 mg capsule,extended release 24hr See Rx Instructions .ROUTE .COMPLEX Qty: 90 RF: 4 loperamide 2 mg Tablet 2 mg PO QID PRN (Reason: Diarrhea) RF: 0 magnesium hydroxide [Milk of Magnesia] 400 mg/5 mL Suspension 30 ml PO QDAY RF: 0 ibuprofen 100 mg Tablet 200 mg PO Q6H PRN (Reason: Pain) RF: 0 docusate sodium 100 mg Tablet 100 mg PO QDAY PRN (Reason: Constipation) RF: 0 carbidopa-levodopa 25-100 mg tablet 2 tab PO TID RF: 0 quetiapine 50 mg tablet 100 mg PO HS RF: 0 Base B,Polyethylene [id number] 17 Gram packet 17 g PO QAM RF: 0 omeprazole 20 mg capsule,delayed release(DR/EC) 20 mg PO AC RF: 0 Discontinued aspirin 81 mg tablet,delayed release (DR/EC) 81 mg PO QDAY RF: 0 ferrous sulfate [iron] 325 mg (65 mg iron) tablet 325 mg PO Q48 RF: 0 ampicillin 500 mg Capsule 500 mg PO BID RF: 0 calcium carbonate 200 mg calcium (500 mg) Tablet,Chewable 200 mg PO QID PRN (Reason: gerd) RF: 0 atorvastatin 20 mg tablet 20 mg PO HS RF: 0 Xarelto 20 mg tablet 20 mg PO QAM RF: 0 mecobalamin (vitamin B12) 1,000 mcg tablet 1,000 mcg PO QAM RF: 0 potassium chloride 20 mcg tablet See Rx Instructions .ROUTE .COMPLEX RF: 0 Follow Up Plan Follow up with: Milind Malone MD, FAAFP [Primary Care Provider] - Patient Disposition: Xfer SNF Prognosis: Undetermined Rehab Potential: Fair I certify that the patient requires SNF services: Yes Overall status at discharge: patient is progressing back to baseline Discharge Orders: Discharge Order (Routine); Ordered 04/09/21 Ordered By: Todd Mercedes [facility] VTE Deep Vein Thrombosis/Pulmonary Embolism Present on Admission: No
[2021-04-08] MEDS: SENNOSIDES 1 TABLET PO SCH (20:44)
[2021-04-08] MEDS: QUEtiapine 100 MG TABLET PO SCH (20:44)
[2021-04-08] MEDS: ESCITALOPRAM 10 MG TABLET PO SCH (20:44)
[2021-04-08] MEDS: ACETAMINOPHEN 325 MG TABLET PO PRN (20:49)
[2021-04-09] MEDS: CARBIDOPA/LEVODOPA 25/100 TABLET PO SCH ×3 (05:41→17:27)
[2021-04-09] MEDS: 0.9 % SODIUM CHLORIDE 10 ML SYRINGE IV SCH ×3 (05:42→21:53)
[2021-04-09 07:12] LABS: Hematocrit 26.4 % (40.1-51.0); Hemoglobin 8.8 g/dL (13.7-17.5)
--- NOTE | 2021-04-09 07:16 | Internal Med Progress Note ---
SUBJECTIVE Subjective Patient information: Note initiated : 04/09/21 at 7:14 am Service Date, if different from initiated Date: [] Patient: Paul Turner a 76 y/o M admitted on 04/06/21 for weakness, edema,. Chief Complaint: [] Interval history: Mr. Turner is a 76 year old male with a history of Parkinson's disease complicated by dementia, coronary artery disease status post CABG, atrial fibrillation on Xarelto, frequent falls, currently living at a facility in [place], [place]. Per report, the patient was admitted to the facility a couple days ago and had a fall on that date. The patient was taken to the emergency department on 04/06/2021 for concern of possible infection. Patient was afebrile, no leukocytosis, no evidence of infection however he did have acute drop in hemoglobin from late December from 12.5 to 9.1. Stool Hemoccult in the ED was positive. Hospital medicine was consulted for concern of possible GI bleed. In the ED, the patient is unable to provide history due to severe dementia. The patient does have some bruising on his left lower extremity, right hip, upper extremities. He was hemodynamically stable, x-rays of the chest, left knee, left tibia fibula, left ankle, left foot did not show any acute findings. CBC and chemistry panel were fairly unremarkable except for the drop in hemoglobin. CODE STATUS was discussed with the patient's daughter, Kamla Kelly, who says the patient CODE STATUS is DNR. 04/08: hemoglobin stable, high grade temps but no fevers, on ceftriaxone for possible UTI, will start lovenox for DVT ppx tomorrow morning, social work working on placement. 04/09 No events overnight or new complaints. Constitutional Vitals: Vital Signs Temp Pulse Resp BP Pulse Ox 99.0 F 91 H 18 124/77 95 04/09/21 03:46 04/09/21 03:46 04/09/21 03:46 04/09/21 03:46 04/09/21 03:46 Period Temp Pulse Resp BP Sys/Darling Pulse Ox Last 24 Hr 98.0 F-99.3 F 90-97 16-20 121-137/75-83 95-100 Intake and Output 04/08/21 04/09/21 04/09/21 21:59 05:59 13:59 Intake Total 200 800 Output Total 3 Balance 200 797 Weight 93.157 kg Intake & Output: Intake & Output 04/08/21 04/09/21 04/09/21 21:59 05:59 13:59 Intake Total 200 800 Output Total 3 Balance 200 797 Weight 93.157 kg Intake: Oral 200 800 Output: # of times incontinent of urine 3 Other: Urine Appearance Clear Urine Color Light Angy Urine Odor Normal Exam: General: Alert, Awake, No acute Distress Eyes/N/T: EOMI, Head/Neck: neck supple, CV: RRR, No murmurs, Pulm: Clear b/l, no wheezing/rhonchi/rales Abd: soft, nontender, +BS x4 Ext: no clubbing/cyanosis, LLE edama, bruise to left knee/thigh and right hip Neuro: Alert, no focal deficits, moves all extremities, Skin: warm/dry OBJ DATA Labs CBC & Chem 7: 04/09/21 06:04 04/08/21 05:47 Labs: Abnormal Lab Results 04/09/21 04/08/21 04/07/21 06:04 05:47 13:20 RBC Hgb 8.8 L 9.4 L Hct 26.4 L POC Hct Lymph % (Auto) [place] % (Auto) Lymph # (Auto) [place] # (Auto) Calcium 8.5 L Total Bilirubin 1.2 H Direct Bilirubin 0.3 H Lactate Dehydrogenase 285 H Total Protein Urine Appearance Urine Ketones Urine Occult Blood Urine Urobilinogen Ur Leukocyte Esterase Urine RBC Urine WBC Urine Mucus 04/07/21 04/07/21 04/07/21 07:47 05:27 01:31 RBC Hgb 8.5 L 8.8 L Hct POC Hct Lymph % (Auto) [place] % (Auto) Lymph # (Auto) [place] # (Auto) Calcium 8.4 L Total Bilirubin 1.1 H Direct Bilirubin 0.3 H Lactate Dehydrogenase Total Protein 5.7 L Urine Appearance Urine Ketones Urine Occult Blood Urine Urobilinogen Ur Leukocyte Esterase Urine RBC Urine WBC Urine Mucus 04/06/21 04/06/21 04/06/21 19:40 16:43 12:09 RBC 2.72 L Hgb 8.4 L 9.1 L Hct 27.2 L POC Hct Lymph % (Auto) 12.7 L Conway % (Auto) 16.3 H Lymph # (Auto) 0.87 L [place] # (Auto) 1.11 H Calcium Total Bilirubin Direct Bilirubin Lactate Dehydrogenase Total Protein Urine Appearance Hazy A Urine Ketones 5 A Urine Occult Blood >=1.0 A Urine Urobilinogen 2.0 A Ur Leukocyte Esterase 250 A Urine RBC 144 H Urine WBC 39 H Urine Mucus Many A 04/06/21 12:09 RBC Hgb Hct POC Hct 26 L Lymph % (Auto) [place] % (Auto) Lymph # (Auto) [place] # (Auto) Calcium Total Bilirubin Direct Bilirubin Lactate Dehydrogenase Total Protein Urine Appearance Urine Ketones Urine Occult Blood Urine Urobilinogen Ur Leukocyte Esterase Urine RBC Urine WBC Urine Mucus Meds: Medications Acetaminophen (Acetaminophen 325 Mg Tablet) 650 mg PO Q6HP PRN; Protocol PRN Reason: Per Pain Protocol/Fever > 101 Last Admin: 04/08/21 20:49 Dose: 650 mg Documented by: Carbidopa/Levodopa (Carbidopa/Levodopa 25/100 Tablet) 2 tab PO TID@0600,1200,1800 [facility] Last Admin: 04/09/21 05:41 Dose: 2 tab Documented by: Ceftriaxone Sodium (Ceftriaxone 1 Gm Vial) 1 gm IV DAILY [facility]; Protocol Last Admin: 04/08/21 08:36 Dose: 1 gm Documented by: Diltiazem HCl (Diltiazem 240 Mg Cap.Xl.24h) 240 mg PO DAILY [facility] Last Admin: 04/08/21 08:36 Dose: 240 mg Documented by: Enoxaparin Sodium (Enoxaparin 40 Mg/0.4 Ml Syringe) 40 mg SQ DAILY [facility] Escitalopram Oxalate (Escitalopram 10 Mg Tablet) 20 mg PO QHS [facility] Last Admin: 04/08/21 20:44 Dose: 20 mg Documented by: Ondansetron HCl (Ondansetron 4 Mg/2 Ml Vial) 4 mg IV Q6HP PRN PRN Reason: Nausea And Vomiting Quetiapine Fumarate (Quetiapine 100 Mg Tablet) 100 mg PO [facility] Last Admin: 04/08/21 20:44 Dose: 100 mg Documented by: Senna (Sennosides 1 Tablet) 2 tab PO [facility] Last Admin: 04/08/21 20:44 Dose: 2 tab Documented by: Sodium Chloride (0.9 % Sodium Chloride 10 Ml Syringe) 10 ml IV Q8 [facility] Last Admin: 04/09/21 05:42 Dose: 10 ml Documented by: A/P Narrative A/P Narrative: A: #Acute on chronic anemia likely from blood loss into large left hip hematoma: -H&H stable #Fall (h/o frequent falls) w/Multiple bruises: #Hx of atrial fibrillation: on Xarelto #CAD s/p CABG #Possible UTI #Parkinson's disease #Dementia w/ behavioral disturbances Plan -Ceftriaxone for possible UTI. -Follow hemoglobin, stable. -Hold Xarelto and Aspirin, do not resume on discharge. -Continue home Sinemet, Seroquel, Escitalopram, Prilosec, Diltiazem, all other medications held and can be discontinued at discharge for quality of life preference per family request. -Disposition: SNF pending placement, no aspirin or anticoagulation at discharge per daughter's request, do not resume vitamins and prior medications that do not improve quality or behaviors. -ppx: scd, lovenox started Code status: DNR Time Spent With Patient Time: Total time spent is greater than 50% in coordination of care (as documented) at patient's floor/unit and/or counseling patient: QUALITY VTE Deep Vein Thrombosis/Pulmonary Embolism Present on Admission: No
[2021-04-09] MEDS: DILTIAZEM 240 MG CAP.XL.24H PO SCH (08:18)
[2021-04-09] MEDS: cefTRIAXone 1 GM VIAL IV SCH (08:18)
[2021-04-09] MEDS: ENOXAPARIN 40 MG/0.4 ML SYRINGE SQ SCH (08:19)
[2021-04-09] MEDS: ESCITALOPRAM 10 MG TABLET PO SCH (20:34)
[2021-04-09] MEDS: SENNOSIDES 1 TABLET PO SCH (20:35)
[2021-04-09] MEDS: ACETAMINOPHEN 325 MG TABLET PO PRN (20:35)
[2021-04-09] MEDS: QUEtiapine 100 MG TABLET PO SCH (20:36)
[2021-04-10] MEDS: 0.9 % SODIUM CHLORIDE 10 ML SYRINGE IV SCH ×3 (05:41→20:38)
[2021-04-10] MEDS: CARBIDOPA/LEVODOPA 25/100 TABLET PO SCH ×3 (05:42→17:35)
[2021-04-10] MEDS: DILTIAZEM 240 MG CAP.XL.24H PO SCH (08:59)
[2021-04-10] MEDS: ENOXAPARIN 40 MG/0.4 ML SYRINGE SQ SCH (08:59)
[2021-04-10] MEDS: cefTRIAXone 1 GM VIAL IV SCH (08:59)
--- NOTE | 2021-04-10 09:48 | Internal Med Progress Note ---
SUBJECTIVE Subjective Patient information: Note initiated : 04/10/21 at 9:47 am Service Date, if different from initiated Date: [] Patient: Paul Turner a 76 y/o M admitted on 04/06/21 for weakness, edema,. Chief Complaint: [] Interval history: Mr. 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 Per report, the patient was admitted to the facility a couple days ago and had a fall on that date. The patient was taken to the emergency department on 04/06/2021 for concern of possible infection. Patient was afebrile, no leukocytosis, no evidence of infection however he did have acute drop in hemoglobin from late December from 12.5 to 9.1. Stool Hemoccult in the ED was positive. Hospital medicine was consulted for concern of possible GI bleed. In the ED, the patient is unable to provide history due to severe dementia. The patient does have some bruising on his left lower extremity, right hip, upper extremities. He was hemodynamically stable, x-rays of the chest, left knee, left tibia fibula, left ankle, left foot did not show any acute findings. CBC and chemistry panel were fairly unremarkable except for the drop in hemoglobin. CODE STATUS was discussed with the patient's daughter, Kamla Kelly, who says the patient CODE STATUS is DNR. 04/08: hemoglobin stable, high grade temps but no fevers, on ceftriaxone for possible UTI, will start lovenox for DVT ppx tomorrow morning, social work working on placement. 04/09 No events overnight or new complaints. 04/10 Patient seems to be feeling well. Sitting up in chair reading the paper. No overnight event or new complaints. Awaiting placement. Review of Systems: denies headache/fever/chills/nausea/vomiting/chest or abdominal pain/cough/dyspnea/diarrhea. Otherwise see above. Constitutional Vitals: Vital Signs Temp Pulse Resp BP Pulse Ox 98.4 F 84 18 119/67 97 04/10/21 08:00 04/10/21 08:00 04/10/21 08:00 04/10/21 08:00 04/10/21 08:00 Period Temp Pulse Resp BP Sys/Darling Pulse Ox Last 24 Hr 97.0 F-98.9 F 71-85 16-18 108-123/59-70 96-100 Intake and Output 04/09/21 04/10/21 04/10/21 21:59 05:59 13:59 Intake Total 300 400 Output Total 301 201 Balance -1 199 Weight 92.986 kg Intake & Output: Intake & Output 04/09/21 04/10/21 04/10/21 21:59 05:59 13:59 Intake Total 300 400 Output Total 301 201 Balance -1 199 Weight 92.986 kg Intake: Oral 300 400 Output: Void Amount 300 200 # of times incontinent of urine 1 1 Other: Urine Appearance Cloudy Clear Urine Color Dark Angy Light Angy Urine Odor Strong Strong Stool Size Large Stool Color Brown Stool Consistency Normal for Patient # Voids 1 # Bowel Movements 1 # of times incontinent of 1 Bowels Exam: General: Alert, Awake, No acute Distress Eyes/N/T: EOMI, Head/Neck: neck supple, CV: RRR, No murmurs, Pulm: Clear b/l, no wheezing/rhonchi/rales Abd: soft, nontender, +BS x4 Ext: no clubbing/cyanosis, LLE edama, bruise to left knee/thigh and right hip Neuro: Alert, no focal deficits, moves all extremities, Skin: warm/dry OBJ DATA Labs CBC & Chem 7: 04/09/21 06:04 04/08/21 05:47 Labs: Abnormal Lab Results 04/09/21 04/08/21 04/07/21 06:04 05:47 13:20 Hgb 8.8 L 9.4 L Hct 26.4 L Calcium 8.5 L Total Bilirubin 1.2 H Direct Bilirubin 0.3 H Lactate Dehydrogenase 285 H Meds: Medications Acetaminophen (Acetaminophen 325 Mg Tablet) 650 mg PO Q6HP PRN; Protocol PRN Reason: Per Pain Protocol/Fever > 101 Last Admin: 04/09/21 20:35 Dose: 650 mg Documented by: Carbidopa/Levodopa (Carbidopa/Levodopa 25/100 Tablet) 2 tab PO TID@0600,1200,1800 [facility] Last Admin: 04/10/21 05:42 Dose: 2 tab Documented by: Ceftriaxone Sodium (Ceftriaxone 1 Gm Vial) 1 gm IV DAILY [facility]; Protocol Last Admin: 04/10/21 08:59 Dose: 1 gm Documented by: Diltiazem HCl (Diltiazem 240 Mg Cap.Xl.24h) 240 mg PO DAILY [facility] Last Admin: 04/10/21 08:59 Dose: 240 mg Documented by: Enoxaparin Sodium (Enoxaparin 40 Mg/0.4 Ml Syringe) 40 mg SQ DAILY [facility] Last Admin: 04/10/21 08:59 Dose: 40 mg Documented by: Escitalopram Oxalate (Escitalopram 10 Mg Tablet) 20 mg PO QHS [facility] Last Admin: 04/09/21 20:34 Dose: 20 mg Documented by: Ondansetron HCl (Ondansetron 4 Mg/2 Ml Vial) 4 mg IV Q6HP PRN PRN Reason: Nausea And Vomiting Quetiapine Fumarate (Quetiapine 100 Mg Tablet) 100 mg PO [facility] Last Admin: 04/09/21 20:36 Dose: 100 mg Documented by: Senna (Sennosides 1 Tablet) 2 tab PO [facility] Last Admin: 04/09/21 20:35 Dose: 2 tab Documented by: Sodium Chloride (0.9 % Sodium Chloride 10 Ml Syringe) 10 ml IV Q8 [facility] Last Admin: 04/10/21 05:41 Dose: 10 ml Documented by: A/P Narrative A/P Narrative: A: #Acute on chronic anemia likely from blood loss into large left hip hematoma: -H&H stable #Fall (h/o frequent falls) w/Multiple bruises: #Hx of atrial fibrillation: on Xarelto #CAD s/p CABG #Possible UTI #Parkinson's disease #Dementia w/ behavioral disturbances Plan -Ceftriaxone for possible UTI -Hold Xarelto and Aspirin, do not resume on discharge. -Continue home Sinemet, Seroquel, Escitalopram, Prilosec, Diltiazem, all other medications held and can be discontinued at discharge for quality of life p reference per family request. -Disposition: SNF pending placement, no aspirin or anticoagulation at discharge per daughter's request, do not resume vitamins and prior medications that do not improve quality or behaviors. -Awaiting placement -ppx: scd, lovenox started Code status: DNR Time Spent With Patient Time: Total time spent is greater than 50% in coordination of care (as documented) at patient's floor/unit and/or counseling patient: QUALITY VTE Deep Vein Thrombosis/Pulmonary Embolism Present on Admission: No
[2021-04-10] MEDS: ESCITALOPRAM 10 MG TABLET PO SCH (20:36)
[2021-04-10] MEDS: QUEtiapine 100 MG TABLET PO SCH (20:36)
[2021-04-10] MEDS: SENNOSIDES 1 TABLET PO SCH (20:36)
[2021-04-11] MEDS: CARBIDOPA/LEVODOPA 25/100 TABLET PO SCH ×3 (05:51→17:09)
[2021-04-11] MEDS: ACETAMINOPHEN 325 MG TABLET PO PRN ×2 (05:54→20:20)
[2021-04-11] MEDS: 0.9 % SODIUM CHLORIDE 10 ML SYRINGE IV SCH ×3 (05:58→20:18)
--- NOTE | 2021-04-11 07:24 | Internal Med Progress Note ---
SUBJECTIVE Subjective Patient information: Note initiated : 04/11/21 at 7:23 am Service Date, if different from initiated Date: [] Patient: Paul Turner a 76 y/o M admitted on 04/06/21 for weakness, edema,. Chief Complaint: [] Interval history: Mr. 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 Per report, the patient was admitted to the facility a couple days ago and had a fall on that date. The patient was taken to the emergency department on 04/06/2021 for concern of possible infection. Patient was afebrile, no leukocytosis, no evidence of infection however he did have acute drop in hemoglobin from late December from 12.5 to 9.1. Stool Hemoccult in the ED was positive. Hospital medicine was consulted for concern of possible GI bleed. In the ED, the patient is unable to provide history due to severe dementia. The patient does have some bruising on his left lower extremity, right hip, upper extremities. He was hemodynamically stable, x-rays of the chest, left knee, left tibia fibula, left ankle, left foot did not show any acute findings. CBC and chemistry panel were fairly unremarkable except for the drop in hemoglobin. CODE STATUS was discussed with the patient's daughter, Kamla Kelly, who says the patient CODE STATUS is DNR. 04/08: hemoglobin stable, high grade temps but no fevers, on ceftriaxone for possible UTI, will start lovenox for DVT ppx tomorrow morning, social work working on placement. 04/09 No events overnight or new complaints. 04/10 Patient seems to be feeling well. Sitting up in chair reading the paper. No overnight event or new complaints. Awaiting placement. 04/11 Was agitated and restless last night. Currently sleeping. Awaiting placement. Review of Systems: denies headache/fever/chills/nausea/vomiting/chest or abdominal pain/cough/dyspnea/diarrhea. Otherwise see above. Constitutional Vitals: Vital Signs Temp Pulse Resp BP Pulse Ox 98.8 F 76 20 136/71 96 04/11/21 04:00 04/11/21 04:00 04/11/21 04:00 04/11/21 04:00 04/11/21 04:00 Period Temp Pulse Resp BP Sys/Darling Pulse Ox Last 24 Hr 98.1 F-99.0 F 75-95 18-20 106-136/63-72 96-100 Intake and Output 04/10/21 04/11/21 04/11/21 21:59 05:59 13:59 Intake Total 120 600 Output Total 550 309 Balance -430 291 Weight 93.979 kg Intake & Output: Intake & Output 04/10/21 04/11/21 04/11/21 21:59 05:59 13:59 Intake Total 120 600 Output Total 550 309 Balance -430 291 Weight 93.979 kg Intake: Oral 120 600 Output: Void Amount 550 200 # of times incontinent of urine 9 Emesis 100 Other: Meal Dinner Percent of Meal Consumed 100% Feeding Ability Independent Urine Appearance Cloudy Urine Color Dark Angy Urine Odor Strong Stool Size Moderate Stool Color Brown Stool Consistency Formed # Bowel Movements 1 Exam: General: sleeping No acute Distress Eyes/N/T: Head/Neck: neck supple, CV: RRR, No murmurs, Pulm: Clear b/l, no wheezing/rhonchi/rales Abd: soft, nontender, +BS x4 Ext: no clubbing/cyanosis, LLE edama, bruise to left knee/thigh and right hip OBJ DATA Labs CBC & Chem 7: 04/09/21 06:04 04/08/21 05:47 Labs: Abnormal Lab Results 04/09/21 04/08/21 06:04 05:47 Hgb 8.8 L Hct 26.4 L Calcium 8.5 L Total Bilirubin 1.2 H Direct Bilirubin 0.3 H Lactate Dehydrogenase 285 H Meds: Medications Acetaminophen (Acetaminophen 325 Mg Tablet) 650 mg PO Q6HP PRN; Protocol PRN Reason: Per Pain Protocol/Fever > 101 Last Admin: 04/11/21 05:54 Dose: 650 mg Documented by: Carbidopa/Levodopa (Carbidopa/Levodopa 25/100 Tablet) 2 tab PO TID@0600,1200,1800 [facility] Last Admin: 04/11/21 05:51 Dose: 2 tab Documented by: Ceftriaxone Sodium (Ceftriaxone 1 Gm Vial) 1 gm IV DAILY [facility]; Protocol Last Admin: 04/10/21 08:59 Dose: 1 gm Documented by: Diltiazem HCl (Diltiazem 240 Mg Cap.Xl.24h) 240 mg PO DAILY [facility] Last Admin: 04/10/21 08:59 Dose: 240 mg Documented by: Enoxaparin Sodium (Enoxaparin 40 Mg/0.4 Ml Syringe) 40 mg SQ DAILY [facility] Last Admin: 04/10/21 08:59 Dose: 40 mg Documented by: Escitalopram Oxalate (Escitalopram 10 Mg Tablet) 20 mg PO QHS [facility] Last Admin: 04/10/21 20:36 Dose: 20 mg Documented by: Ondansetron HCl (Ondansetron 4 Mg/2 Ml Vial) 4 mg IV Q6HP PRN PRN Reason: Nausea And Vomiting Quetiapine Fumarate (Quetiapine 100 Mg Tablet) 100 mg PO [facility] Last Admin: 04/10/21 20:36 Dose: 100 mg Documented by: Senna (Sennosides 1 Tablet) 2 tab PO [facility] Last Admin: 04/10/21 20:36 Dose: 2 tab Documented by: Sodium Chloride (0.9 % Sodium Chloride 10 Ml Syringe) 10 ml IV Q8 [facility] Last Admin: 04/11/21 05:58 Dose: 10 ml Documented by: A/P Narrative A/P Narrative: A: #Acute on chronic anemia likely from blood loss into large left hip hematoma: -H&H stable #Fall (h/o frequent falls) w/Multiple bruises: #Parkinson's disease #Dementia w/ behavioral disturbances #Hx of atrial fibrillation: on Xarelto #CAD s/p CABG #Possible UTI Plan -Ceftriaxone for possible UTI -Hold Xarelto and Aspirin, do not resume on discharge. -Continue home Sinemet, Seroquel, Escitalopram, Prilosec, Diltiazem, all other medications held and can be discontinued at discharge for quality of life preference per family request. -Disposition: SNF pending placement, no aspirin or anticoagulation at discharge per daughter's request, do not resume vitamins and prior medications that do not improve quality or behaviors. -Awaiting placement -ppx: scd, lovenox started Code status: DNR Time Spent With Patient Time: Total time spent is greater than 50% in coordination of care (as documented) at patient's floor/unit and/or counseling patient: QUALITY VTE Deep Vein Thrombosis/Pulmonary Embolism Present on Admission: No
[2021-04-11] MEDS: cefTRIAXone 1 GM VIAL IV SCH (09:13)
[2021-04-11] MEDS: ENOXAPARIN 40 MG/0.4 ML SYRINGE SQ SCH (09:13)
[2021-04-11] MEDS: DILTIAZEM 240 MG CAP.XL.24H PO SCH (09:13)
[2021-04-11] MEDS: QUEtiapine 100 MG TABLET PO SCH (20:21)
[2021-04-11] MEDS: ESCITALOPRAM 10 MG TABLET PO SCH (20:21)
[2021-04-11] MEDS: SENNOSIDES 1 TABLET PO SCH (20:21)
[2021-04-12] MEDS: 0.9 % SODIUM CHLORIDE 10 ML SYRINGE IV SCH ×3 (04:02→20:19)
[2021-04-12] MEDS: CARBIDOPA/LEVODOPA 25/100 TABLET PO SCH ×3 (05:57→18:05)
--- NOTE | 2021-04-12 07:27 | Internal Med Progress Note ---
SUBJECTIVE Subjective Patient information: Note initiated : 04/12/21 at 7:27 am Service Date, if different from initiated Date: [] Patient: Paul Turner a 76 y/o M admitted on 04/06/21 for weakness, edema,. Chief Complaint: [] Interval history: Mr. Turner is a 76 year old male with a history of Parkinson's disease complicated by dementia, coronary artery disease status post CABG, atrial fibrillation on Xarelto, frequent falls, currently living at a facility in [place], [place]. Per report, the patient was admitted to the facility a couple days ago and had a fall on that date. The patient was taken to the emergency department on 04/06/2021 for concern of possible infection. Patient was afebrile, no leukocytosis, no evidence of infection however he did have acute drop in hemoglobin from late December from 12.5 to 9.1. Stool Hemoccult in the ED was positive. Hospital medicine was consulted for concern of possible GI bleed. In the ED, the patient is unable to provide history due to severe dementia. The patient does have some bruising on his left lower extremity, right hip, upper extremities. He was hemodynamically stable, x-rays of the chest, left knee, left tibia fibula, left ankle, left foot did not show any acute findings. CBC and chemistry panel were fairly unremarkable except for the drop in hemoglobin. CODE STATUS was discussed with the patient's daughter, Kamla Kelly, who says the patient CODE STATUS is DNR. 04/08: hemoglobin stable, high grade temps but no fevers, on ceftriaxone for possible UTI, will start lovenox for DVT ppx tomorrow morning, social work working on placement. 04/09 No events overnight or new complaints. 04/10 Patient seems to be feeling well. Sitting up in chair reading the paper. No overnight event or new complaints. Awaiting placement. 04/11 Was agitated and restless last night. Currently sleeping. Awaiting placement. 04/12 Patient more calm last night. No overnight events. Sleeping currently. Awaiting placement Review of Systems: denies headache/fever/chills/nausea/vomiting/chest or abdominal pain/cough/dyspnea/diarrhea. Otherwise see above. Constitutional Vitals: Vital Signs Temp Pulse Resp BP Pulse Ox 98.3 F 82 16 114/68 96 04/12/21 03:59 04/12/21 03:59 04/12/21 03:59 04/12/21 03:59 04/12/21 03:59 Period Temp Pulse Resp BP Sys/Darling Pulse Ox Last 24 Hr 97.4 F-98.9 F 82-90 16-18 98-141/58-73 96-98 Intake and Output 04/11/21 04/12/21 04/12/21 21:59 05:59 13:59 Intake Total 480 Output Total 401 3 Balance 79 -3 Weight 94.075 kg Intake & Output: Intake & Output 04/11/21 04/12/21 04/12/21 21:59 05:59 13:59 Intake Total 480 Output Total 401 3 Balance 79 -3 Weight 94.075 kg Intake: Oral 480 Output: Void Amount 400 # of times incontinent of urine 1 3 Other: Meal Lunch Percent of Meal Consumed 50% Feeding Ability Assist with Tray Set Up Urine Color Dark Yellow Dark Yellow Urine Odor Strong Strong Exam: General: sleeping No acute Distress Eyes/N/T: Head/Neck: neck supple, CV: RRR, No murmurs, Pulm: Clear b/l, no wheezing/rhonchi/rales Abd: soft, nontender, +BS x4 Ext: no clubbing/cyanosis, LLE edama, bruise to left knee/thigh and right hip OBJ DATA Labs CBC & Chem 7: 04/09/21 06:04 04/08/21 05:47 Meds: Medications Acetaminophen (Acetaminophen 325 Mg Tablet) 650 mg PO Q6HP PRN; Protocol PRN Reason: Per Pain Protocol/Fever > 101 Last Admin: 04/11/21 20:20 Dose: 650 mg Documented by: Carbidopa/Levodopa (Carbidopa/Levodopa 25/100 Tablet) 2 tab PO TID@0600,1200,1800 ROSAL[facility] Last Admin: 04/12/21 05:57 Dose: 2 tab Documented by: Ceftriaxone Sodium (Ceftriaxone 1 Gm Vial) 1 gm IV DAILY [facility]; Protocol Last Admin: 04/11/21 09:13 Dose: 1 gm Documented by: Diltiazem HCl (Diltiazem 240 Mg Cap.Xl.24h) 240 mg PO DAILY [facility] Last Admin: 04/11/21 09:13 Dose: 240 mg Documented by: Enoxaparin Sodium (Enoxaparin 40 Mg/0.4 Ml Syringe) [address] [facility] Last Admin: 04/11/21 09:13 Dose: 40 mg Documented by: Escitalopram Oxalate (Escitalopram 10 Mg Tablet) [address] [facility] Last Admin: 04/11/21 20:21 Dose: 20 mg Documented by: Ondansetron HCl (Ondansetron 4 Mg/2 Ml Vial) 4 mg IV Q6HP PRN PRN Reason: Nausea And Vomiting Quetiapine Fumarate (Quetiapine 100 Mg Tablet) 100 mg PO [facility] Last Admin: 04/11/21 20:21 Dose: 100 mg Documented by: Senna (Sennosides 1 Tablet) 2 tab PO [facility] Last Admin: 04/11/21 20: Dose: 2 tab Documented by: Sodium Chloride (0.9 % Sodium Chloride 10 Ml Syringe) [address] [facility] Last Admin: 04/12/21 04:02 Dose: 10 ml Documented by: A/P Narrative A/P Narrative: A: #Acute on chronic anemia likely from blood loss into large left hip hematoma: -H&H stable #Fall (h/o frequent falls) w/Multiple bruises: #Parkinson's disease #Dementia w/ behavioral disturbances #Hx of atrial fibrillation: on Xarelto at home #CAD s/p CABG #Possible UTI Plan -Ceftriaxone for possible UTI -Hold Xarelto and Aspirin, do not resume on discharge. -Continue home Sinemet, Seroquel, Escitalopram, Prilosec, Diltiazem, all other medications held and can be discontinued at discharge for quality of life preference per family request. -Disposition: SNF pending placement, no aspirin or anticoagulation at discharge per daughter's request, do not resume vitamins and prior medications that do not improve quality or behaviors. -Awaiting placement -ppx: scd, lovenox started Code status: DNR Time Spent With Patient Time: Total time spent is greater than 50% in coordination of care (as documented) at patient's floor/unit and/or counseling patient: QUALITY VTE Deep Vein Thrombosis/Pulmonary Embolism Present on Admission: No
[2021-04-12] MEDS: cefTRIAXone 1 GM VIAL IV SCH (09:51)
[2021-04-12] MEDS: ENOXAPARIN 40 MG/0.4 ML SYRINGE SQ SCH (09:53)
[2021-04-12] MEDS: DILTIAZEM 240 MG CAP.XL.24H PO SCH (09:53)
[2021-04-12] MEDS: QUEtiapine 100 MG TABLET PO SCH (20:18)
[2021-04-12] MEDS: ESCITALOPRAM 10 MG TABLET PO SCH (20:18)
[2021-04-12] MEDS: SENNOSIDES 1 TABLET PO SCH (20:18)
[2021-04-13] MEDS: CARBIDOPA/LEVODOPA 25/100 TABLET PO SCH (05:42)
[2021-04-13] MEDS: 0.9 % SODIUM CHLORIDE 10 ML SYRINGE IV SCH (05:42)
[2021-04-13] MEDS: cefTRIAXone 1 GM VIAL IV SCH (08:12)
[2021-04-13] MEDS: ENOXAPARIN 40 MG/0.4 ML SYRINGE SQ SCH (08:12)
[2021-04-13] MEDS: DILTIAZEM 240 MG CAP.XL.24H PO SCH (08:12)
--- NOTE | 2021-04-13 08:15 | Internal Med Progress Note ---
SUBJECTIVE Subjective Patient information: Note initiated : 04/13/21 at 8:13 am Service Date, if different from initiated Date: [] Patient: Paul Turner a 76 y/o M admitted on 04/06/21 for weakness, edema,. Chief Complaint: [] Interval history: Mr. Turner is a 76 year old male with a history of Parkinson's disease complicated by dementia, coronary artery disease status post CABG, atrial fibrillation on Xarelto, frequent falls, currently living at a facility in [place], [place]. Per report, the patient was admitted to the facility a couple days ago and had a fall on that date. The patient was taken to the emergency department on 04/06/2021 for concern of possible infection. Patient was afebrile, no leukocytosis, no evidence of infection however he did have acute drop in hemoglobin from late December from 12.5 to 9.1. Stool Hemoccult in the ED was positive. Hospital medicine was consulted for concern of possible GI bleed. In the ED, the patient is unable to provide history due to severe dementia. The patient does have some bruising on his left lower extremity, right hip, upper extremities. He was hemodynamically stable, x-rays of the chest, left knee, left tibia fibula, left ankle, left foot did not show any acute findings. CBC and chemistry panel were fairly unremarkable except for the drop in hemoglobin. CODE STATUS was discussed with the patient's daughter, Kamla Kelly, who says the patient CODE STATUS is DNR. 04/08: hemoglobin stable, high grade temps but no fevers, on ceftriaxone for possible UTI, will start lovenox for DVT ppx tomorrow morning, social work working on placement. 04/09 No events overnight or new complaints. 04/10 Patient seems to be feeling well. Sitting up in chair reading the paper. No overnight event or new complaints. Awaiting placement. 04/11 Was agitated and restless last night. Currently sleeping. Awaiting placement. 04/12 Patient more calm last night. No overnight events. Sleeping currently. Awaiting placement 04/13 Sitting up eating breakfast. Feeling well. No new complaints or overnight events. Review of Systems: denies headache/fever/chills/nausea/vomiting/chest or abdominal pain/cough/dyspnea/diarrhea. Otherwise see above. Constitutional Vitals: Vital Signs Temp Pulse Resp BP Pulse Ox 97.7 F 87 18 123/72 97 04/13/21 03:30 04/13/21 03:30 04/13/21 03:30 04/13/21 03:30 04/13/21 03:30 Period Temp Pulse Resp BP Sys/Darling Pulse Ox Last 24 Hr 97.7 F-98.8 F 77-110 18-18 105-123/62-72 95-99 Intake and Output 04/12/21 04/13/21 04/13/21 21:59 05:59 13:59 Intake Total 360 240 Output Total 350 3 Balance 10 237 Weight 93.015 kg Intake & Output: Intake & Output 04/12/21 04/13/21 04/13/21 21:59 05:59 13:59 Intake Total 360 240 Output Total 350 3 Balance 10 237 Weight 93.015 kg Intake: Oral 360 240 Output: Void Amount 350 # of times incontinent of urine 3 Other: Meal Lunch Percent of Meal Consumed 25% Exam: General: awake No acute Distress Eyes/N/T: EOMI Head/Neck: neck supple, CV: RRR, No murmurs, Pulm: Clear b/l, no wheezing/rhonchi/rales Abd: soft, nontender, +BS x4 Ext: no clubbing/cyanosis, LLE edama, bruise to left knee/thigh and right hip neuro: Alert awake, moves all extremities OBJ DATA Labs CBC & Chem 7: 04/09/21 06:04 04/08/21 05:47 Meds: Medications Acetaminophen (Acetaminophen 325 Mg Tablet) 650 mg PO Q6HP PRN; Protocol PRN Reason: Per Pain Protocol/Fever > 101 Last Admin: 04/11/21 20:20 Dose: 650 mg Documented by: Carbidopa/Levodopa (Carbidopa/Levodopa 25/100 Tablet) 2 tab PO TID@0600,1200,1800 [facility] Last Admin: 04/13/21 05:42 Dose: 2 tab Documented by: Ceftriaxone Sodium (Ceftriaxone 1 Gm Vial) 1 gm IV DAILY [facility]; Protocol Last Admin: 04/13/21 08:12 Dose: 1 gm Documented by: Diltiazem HCl (Diltiazem 240 Mg Cap.Xl.24h) 240 mg PO DAILY [facility] Last Admin: 04/13/21 08:12 Dose: 240 mg Documented by: Enoxaparin Sodium (Enoxaparin 40 Mg/0.4 Ml Syringe) 40 mg SQ DAILY [facility] Last Admin: 04/13/21 08:12 Dose: 40 mg Documented by: Escitalopram Oxalate (Escitalopram 10 Mg Tablet) 20 mg PO QHS [facility] Last Admin: 04/12/21 20:18 Dose: 20 mg Documented by: Ondansetron HCl (Ondansetron 4 Mg/2 Ml Vial) 4 mg IV Q6HP PRN PRN Reason: Nausea And Vomiting Quetiapine Fumarate (Quetiapine 100 Mg Tablet) 100 mg PO [facility] Last Admin: 04/12/21 20:18 Dose: 100 mg Documented by: Senna (Sennosides 1 Tablet) 2 tab PO [facility] Last Admin: 04/12/21 20:18 Dose: Not Given Documented by: Sodium Chloride (0.9 % Sodium Chloride 10 Ml Syringe) 10 ml IV Q8 [facility] Last Admin: 04/13/21 05:42 Dose: 10 ml Documented by: A/P Narrative A/P Narrative: A: #Acute on chronic anemia likely from blood loss into large left hip hematoma: -H&H stable #Fall (h/o frequent falls) w/Multiple bruises: #Parkinson's disease #Dementia w/ behavioral disturbances #Hx of atrial fibrillation: on Xarelto at home #CAD s/p CABG #Possible UTI Plan -abx d/c after today dose -Hold Xarelto and Aspirin, do not resume on discharge. -Continue home Sinemet, Seroquel, Escitalopram, Prilosec, Diltiazem, all other medications held and can be discontinued at discharge for quality of life preference per family request. -Disposition: SNF pending placement, no aspirin or anticoagulation at discharge per daughter's request, do not resume vitamins and prior medications that do not improve quality or behaviors. -Awaiting placement -ppx: scd, lovenox started Code status: DNR Time Spent With Patient Time: Total time spent is greater than 50% in coordination of care (as documented) at patient's floor/unit and/or counseling patient: QUALITY VTE Deep Vein Thrombosis/Pulmonary Embolism Present on Admission: No
--- NOTE | 2021-04-13 11:52 | Discharge Summary ---
Discharge Provider Provider Patient information: Note initiated : 04/13/21 at 11:51 am Service Date, if different from initiated Date: [] Patient: Paul Turner 76 y/o M admitted on 04/06/21 for weakness, edema,. Chief Complaint: [] Date of admission: 04/06/21 19:01 Discharge date: 04/13/21 Primary care physician: Milind Malone M.D., F.A.A.F.P. Consults: 04/06/21 Consult to Physician [CONS] Stat Comment: Consulting Provider: Phillip Long Reason For Exam: Physician to Consult 04/06/21 19:23 Consult to Physician [CONS] Stat Comment: Consulting Provider: Bronson Meehan Reason For Exam: Physician to Consult Discharge Meds Discharge Medications Home Medications diltiazem HCl 240 mg capsule,extended release 24 hr See Rx Instructions .ROUTE .COMPLEX #90 cap 11/01/20 [Rx Confirmed 04/06/21 Last Taken Unknown] escitalopram oxalate 10 mg tablet 20 mg PO QHS tab 11/01/20 [History Confirmed 04/06/21 Last Taken Unknown] docusate sodium 100 mg PO QDAY PRN 04/06/21 [History Confirmed 04/06/21 Last Taken Unknown] ibuprofen 200 mg PO Q6H PRN 04/06/21 [History Confirmed 04/06/21 Last Taken Unknown] loperamide 2 mg PO QID PRN 04/06/21 [History Confirmed 04/06/21 Last Taken Unknown] magnesium hydroxide [Milk of Magnesia] 30 ml PO QDAY 04/06/21 [History Confirmed 04/06/21 Last Taken Unknown] Base B,Polyethylene [id number] 17 g PO QAM 04/07/21 [History Confirmed 04/07/21 Last Taken 04/06/21 08:00] carbidopa-levodopa 2 tab PO TID 04/07/21 [History Confirmed 04/07/21 Last Taken 04/06/21 08:00] omeprazole 20 mg PO AC 04/07/21 [History Confirmed 04/07/21 Last Taken 04/05/21 08:00] quetiapine 100 mg PO HS 04/07/21 [History Confirmed 04/07/21 Last Taken 04/05/21 21:00] COURSE Hospital Course Hospital course: Interval history: Mr. 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 Per report, the patient was admitted to the facility a couple days ago and had a fall on that date. The patient was taken to the emergency department on 04/06/2021 for concern of possible infection. Patient was afebrile, no leukocytosis, no evidence of infection however he did have acute drop in hemoglobin from late December from 12.5 to 9.1. Stool Hemoccult in the ED was positive. Hospital medicine was consulted for concern of possible GI bleed. In the ED, the patient is unable to provide history due to severe dementia. The patient does have some bruising on his left lower extremity, right hip, upper extremities. He was hemodynamically stable, x-rays of the chest, left knee, left tibia fibula, left ankle, left foot did not show any acute findings. CBC and chemistry panel were fairly unremarkable except for the drop in hemoglobin. CODE STATUS was discussed with the patient's daughter, Kamla Kelly, who says the patient CODE STATUS is DNR. 04/08: hemoglobin stable, high grade temps but no fevers, on ceftriaxone for possible UTI, will start lovenox for DVT ppx tomorrow morning, social work working on placement. 04/09 No events overnight or new complaints. 04/10 Patient seems to be feeling well. Sitting up in chair reading the paper. No overnight event or new complaints. Awaiting placement. 04/11 Was agitated and restless last night. Currently sleeping. Awaiting placement. 04/12 Patient more calm last night. No overnight events. Sleeping currently. Awaiting placement 04/13 Sitting up eating breakfast. Feeling well. No new complaints or overnight events. Transition to swing bed status A: #Acute on chronic anemia likely from blood loss into large left hip hematoma: -H&H stable #Fall (h/o frequent falls) w/Multiple bruises: #Parkinson's disease #Dementia w/ behavioral disturbances #Hx of atrial fibrillation: on Xarelto at home #CAD s/p CABG #Possible UTI Discharge diagnosis: Acute on chronic anemia from fall in the hip hematoma weakness Secondary discharge diagnosis: Dementia Parkinson's A. fib CAD possible UTI Time Spent with Patient Time attestation: Total time spent providing and/or coordinating discharge services: Time spent: Greater than 30 minutes EXAM Constitutional Vitals: Temp Pulse Resp BP Pulse Ox 97.7 F 87 18 123/72 97 04/13/21 03:30 04/13/21 03:30 04/13/21 03:30 04/13/21 03:30 04/13/21 03:30 Discharge Plan Patient/Caregiver Discharge Instructions Instructions: Ciprofloxacin (By mouth), Anemia (DC) Additional Instructions: Resume cardiac diet as tolerated. Take all meals up in chair, sitting at 90 degrees, to prevent aspiration. Increase activity as tolerated and with assistance at all times Continue fall precautions. Take all medication as directed. Return to ER for fever, chills, uncontrolled pain, inability to urinate or have a bowel movement, nausea and/or vomiting, swelling, redness, signs of infection, shortness of breath, chest pain, return of symptoms, or other acute symptom This discharge packet is provided to you to help keep you informed about your care. We want to ensure you get everything you need when you go home. You will also be receiving a call from us in a few days to follow up with you and see how you are doing since your discharge. This gives us a chance to listen to any concerns you maybe experiencing since you were discharged or any additional needs you may have, as well as providing us feedback on your care experience. We strive to always provide excellent care and thank you for your feedback and for choosing [facility]. Prescriptions: Continued escitalopram oxalate 10 mg tablet 20 mg PO QHS RF: 0 diltiazem HCl 240 mg capsule,extended release 24hr See Rx Instructions .ROUTE .COMPLEX Qty: 90 RF: 4 loperamide 2 mg Tablet 2 mg PO QID PRN (Reason: Diarrhea) RF: 0 magnesium hydroxide [Milk of Magnesia] 400 mg/5 mL Suspension 30 ml PO QDAY RF: 0 ibuprofen 100 mg Tablet 200 mg PO Q6H PRN (Reason: Pain) RF: 0 docusate sodium 100 mg Tablet 100 mg PO QDAY PRN (Reason: Constipation) RF: 0 carbidopa-levodopa 25-100 mg tablet 2 tab PO TID RF: 0 quetiapine 50 mg tablet 100 mg PO HS RF: 0 Base B,Polyethylene [id number] 17 Gram packet 17 g PO QAM RF: 0 omeprazole 20 mg capsule,delayed release(DR/EC) 20 mg PO AC RF: 0 Discontinued aspirin 81 mg tablet,delayed release (DR/EC) 81 mg PO QDAY RF: 0 ferrous sulfate [iron] 325 mg (65 mg iron) tablet 325 mg PO Q48 RF: 0 ampicillin 500 mg Capsule 500 mg PO BID RF: 0 calcium carbonate 200 mg calcium (500 mg) Tablet,Chewable 200 mg PO QID PRN (Reason: gerd) RF: 0 atorvastatin 20 mg tablet 20 mg PO HS RF: 0 Xarelto 20 mg tablet 20 mg PO QAM RF: 0 mecobalamin (vitamin B12) 1,000 mcg tablet 1,000 mcg PO QAM RF: 0 potassium chloride 20 mcg tablet See Rx Instructions .ROUTE .COMPLEX RF: 0 Follow Up Plan Follow up with: Milind Malone MD, FAAFP [Primary Care Provider] - Disposition: Xfer As Swing Bed ([facility]) Prognosis: Undetermined Discharge Orders: Discharge Order (Routine); Ordered 04/13/21 Ordered By: Todd [facility] VTE Deep Vein Thrombosis/Pulmonary Embolism Present on Admission: No
== END 2021-04-13 12:00 | disposition swing bed (61) | DRG 812 ==
LOC: ED 11:54 → MEDSUR 19:01
PROVIDERS: ADMIT Internal Medicine; ATTEND Internal Medicine